=== PATIENT | female | born 1950 | race Caucasian/White ===

== ENCOUNTER 2020-04-14 09:28 | Outpatient (CLI) | payer MEDICARE, SELFPAY | END 2020-04-14 09:29 | disposition home or self-care (01) | LOC: ANHCOVIDVC 09:28 | PROVIDERS: PCP Family Medicine | DX: Z23 Encounter for immunization (principal) | CPT/HCPCS: 0001A; 91300 ==

== ENCOUNTER 2020-05-05 09:27 | Outpatient (CLI) | payer MEDICARE, SELFPAY | END 2020-05-05 09:28 | disposition home or self-care (01) | LOC: ANHCOVIDVC 09:27 | PROVIDERS: PCP Family Medicine | DX: Z23 Encounter for immunization (principal) | CPT/HCPCS: 0002A; 91300 ==

== ENCOUNTER 2020-11-13 08:27 | Outpatient (CLI) | payer MEDICARE, SELFPAY ==
--- NOTE | 2020-11-13 | ECG_ITS ---
Measurements Intervals [place] Rate: 56 P: 29 ID: [id number] QRS: 2 QRSD: 108 T: 11 QT: 399 QTc: 388 Interpretive Statements SINUS BRADYCARDIA BORDERLINE ECG Electronically Signed On 11-13-2020 10:08:13 CDT by Travis Zamora D.O.
[2020-11-13 09:02] LABS: Hematocrit 41.2 % (37.0-47.0); Hemoglobin 13.8 g/dL (12.0-15.0)
[2020-11-13 09:11] LABS: Albumin Level 4.4 g/dL (3.5-5.1); Estimated Glomerular Filt Rate 40
[2020-11-13 09:15] LABS: Urine Cotinine NEGATIVE
== END 2020-11-13 08:28 | disposition home or self-care (01) ==
LOC: ANHLAB 08:34
PROVIDERS: PCP Family Medicine; Visit Provider Orthopaedic Surgery
DX: Z01.818 Encounter for other preprocedural examination (principal); I12.9 Hypertensive chronic kidney disease with stage 1 through stage 4 chronic kidney disease, or unspecified chronic kidney disease; M16.11 Unilateral primary osteoarthritis, right hip; E66.9 Obesity, unspecified; Z51.81 Encounter for therapeutic drug level monitoring; Z79.899 Other long term (current) drug therapy
CPT/HCPCS: 80307; 82040; 82565; 85014; 85018; 93005

== ENCOUNTER 2020-12-18 08:31 | Outpatient (CLI) | payer MEDICARE, SELFPAY ==
[2020-12-18 09:36] LABS: Hematocrit 42.1 % (37.0-47.0); Hemoglobin 14.4 g/dL (12.0-15.0); Mean Corpuscular HGB Conc 34.2 g/dl (32-36); Mean Corpuscular Hemoglobin 31.2 pg (26-34); Mean Corpuscular Volume 91.1 fl (80-100); Mean Platelet Volume 10.5 fl (7.4-10.4); Platelet Count Result 340 k/mm3 (150-375); Red Blood Count 4.62 M/mm3 (4.2-5.4); Red Cell Distribution Width 13.2 % (11.5-14.5); White Blood Count 8.6 K/mm3 (4.5-10.0)
[2020-12-18 09:43] LABS: Add Urine Microscopic? YES; Appearance Urine Cloudy (Clear); Bacteria Urine Trace /hpf; Bilirubin Urine Negative (Negative); Blood Urine Negative (Negative); Color Urine Yellow (Yellow); Glucose Urine UA Negative (Negative); Ketones Urine Negative (Negative); Leukocyte Esterase Ur 3+ LEU/UL (NEGATIVE); Mucus Urine Rare /lpf; Nitrate Urine Negative (Negative); Protein Urine Negative (Negative); Specific Grav Ur 1.013 (1.001-1.035); Squamous Epithelial Cell Urine Few /hpf (Few); Urobilinogen Urine Negative mg/dL (<2.0); WBC Clumps Urine Present /HPF; WBC Urine >75 /hpf (0-3)
[2020-12-18 09:56] LABS: Albumin Level 4.5 g/dL (3.5-5.1); Anion Gap 12 mmol/L (8-16); Blood Urea Nitrogen 27 mg/dL (7-17); Calcium 9.9 mg/dL (8.4-10.2); Carbon Dioxide 23 mmol/L (22-30); Chloride 102 mmol/L (98-107); Estimated Glomerular Filt Rate 37; Glucose 125 mg/dL (65-110); Phosphorus 4.2 mg/dL (2.5-4.5); Potassium 4.3 mmol/L (3.4-5.0); Sodium 137 mmol/L (137-145)
[2020-12-18 10:08] LABS: Complement C3 132 mg/dL (88-165)
[2020-12-18 10:10] LABS: Parathyroid Intact 55.8 pg/mL (7.5-53.5)
[2020-12-18 10:34] LABS: Erythrocyte Sedimentation Rate 26 mm/hr (0-20)
[2020-12-18 10:55] LABS: Creatinine Urine 109.9 mg/dL; Total Protein Urine Random 11 mg/dL
[2020-12-20 19:45] LABS: Complement Total CH50 >60 U/mL (31-60)
[2020-12-21 04:53] LABS: Kappa\\Lambda Light Chains 2.01 (0.26-1.65); Lambda Light Chain 20.4 mg/L (5.7-26.3)
[2020-12-23 15:24] LABS: Creat 24 Hr 0.68 g/24 h (0.50-2.15); Measured Kappa Chains <1.00 mg/dL (<2.00); Measured Lambda Chains <1.00 mg/dL (<2.00); Pro/Creat Ratio 103 mg/g creat (<=114)
== END 2020-12-18 08:32 | disposition home or self-care (01) ==
LOC: ANHLAB 08:43
PROVIDERS: PCP Family Medicine; Referring Provider Family Medicine; Visit Provider Internal Medicine Nephrology
DX: N18.31 Chronic kidney disease, stage 3a (principal)
CPT/HCPCS: 36415; 80069; 81001; 82570; 83883; 83970; 84156; 85027; 85652; 86038; 86160; 86162; 86334; 86335

== ENCOUNTER 2020-12-20 19:02 | Observation (INO) | payer MEDICARE, SELFPAY ==
[2020-12-20] VITALS (13 sets, daily range): BP systolic 115–152; BP diastolic 54–71; PULSE 70–86; RESP 12–18; TEMP 36.5–36.9; O2SAT 94–100
--- NOTE | ~2020-12-20 | US_ITS ---
EXAMINATION: US renal BI DATE: 12/22/2020 09:40 INDICATION: Acute kidney injury. TECHNIQUE: Multiple ultrasound grayscale images of the kidneys were obtained. COMPARISON: None. FINDINGS: The right kidney measures 10.5 x 3.8 x 4.5 cm. The left kidney measures 10.5 x 4.2 x 5.2 cm. The kidn eys demonstrate normal parenchymal echogenicity. There is no hydronephrosis. The bladder is decompres sed and not well visualized. IMPRESSION: 1. Normal kidneys. No hydronephrosis. Reviewed, dictated and finalized at location A. SPECIALIST
--- NOTE | ~2020-12-20 | XR_ITS ---
EXAMINATION: XR hip LT 1V INDICATION: Right hip post reduction TECHNIQUE: AP view of the right hip is obtained. COMPARISON: 1922 hours FINDINGS: The previously described left hip dislocation has been reduced. Alignment is anatomic. No f racture is identified. IMPRESSION: 1. Reduced hip dislocation. Reviewed, dictated and finalized at location A. SSIAN ADMINISTRATOR IMPRESSION: 1. Reduced hip dislocation.
--- NOTE | ~2020-12-20 | XR_ITS ---
EXAMINATION: XR chest 1V INDICATION: History of hypertension TECHNIQUE: AP view of the chest is obtained. COMPARISON: None available FINDINGS: The lungs are free of acute opacities. There is no pleural effusion or pneumothorax. The ca rdiomediastinal silhouette is normal. The visualized osseous structures are unremarkable. IMPRESSION: 1. No acute cardiopulmonary abnormality. Reviewed, dictated and finalized at location A. ING MACHINE OPERATOR
--- NOTE | ~2020-12-20 | XR_ITS ---
EXAMINATION: XR hip LT 2V w AP pelvis INDICATION: Left hip pain and dislocation TECHNIQUE: Three views of the left hip are obtained on four radiographs. COMPARISON: 03/28/2019 FINDINGS: There are changes of left hip arthroplasty. There is superolateral and posterior dislocatio n of femoral component relative to the acetabular component. No fracture is identified. There is adva nced osteoarthritis of the right hip. Calcifications of the pelvis likely reflect fibroids. There is severe lumbar spondylosis. IMPRESSION: 1. Superolateral posterior dislocation of the femoral component of the left hip arthroplasty. Reviewed, dictated and finalized at location A. LE CEMENTER
--- NOTE | 2020-12-20 19:25 | PC.NURSE ---
Pt to XRAY via stretcher at this time.
--- NOTE | 2020-12-20 19:27 | ED.FALL ---
HPI - Fall General Chief Complaint: Fall Stated Complaint: fall hip injury Time Seen by Provider: 12/20/20 19:08 Source: patient Mode of arrival: EMS Limitations: no limitations History of Present Illness HPI Narrative: 70-year-old female Patient had her left hip replaced [address] Lloyd Today she bent over in her kitchen to fruit picker a spoon that she had dropped and fell and landed on her left hip and heard a pop with immediate pain and inability to bear weight and was brought to the ER by EMS She does not take any blood thinners, she did not hit anything else, she has no other complaints of pain or injury, preceding symptoms of weakness or dizziness or anything like that that precipitated the fall Related Data Home Medications Medication Instructions Recorded Confirmed atenolol 100 mg tablet 100 mg PO DAILY 01/02/19 03/28/19 lisinopril 20 1 tablet PO DAILY 01/02/19 03/28/19 mg-hydrochlorothiazide 25 mg tablet naproxen sodium 220 mg tablet 440 mg PO BID tablet 01/02/19 03/28/19 levothyroxine 75 mcg tablet 75 mcg PO DAILY tablet 10/06/20 pantoprazole 40 mg tablet,delayed 40 mg PO QAM 10/06/20 release spironolactone 25 mg tablet 25 mg PO DAILY 10/06/20 Allergies Allergy/AdvReac Type Severity Reaction Status Date / Time hydrocodone Allergy Unknown Swelling Verified 10/06/20 10:57 tramadol Allergy Unknown Swelling Verified 10/06/20 10:57 Review of Systems Review of Systems: All systems reviewed & are unremarkable except as noted in HPI and below Constitutional: Constitutional: Reports no additional constitutional complaints, Denies chills, Denies fever(s), Denies headache(s) and Denies weakness Eyes: Eyes: Reports no additional eye complaints and Denies change in vision ENT: Denies vertigo, Denies dizziness and Denies headache(s) Cardiovascular: Cardiovascular: Denies chest pain and Denies dyspnea Respiratory: Respiratory: Denies cough and Denies dyspnea Gastrointestinal: Gastrointestinal: Denies abdominal pain and Denies nausea Genitourinary: Genitourinary: Denies urinary frequency, Denies dysuria and Denies flank pain Musculoskeletal: Musculoskeletal: Denies back pain, Denies deformity, Reports arthralgias, Reports joint swelling and Denies numbness Integumentary/Breasts: Skin/Breast: Denies rash and Denies wounds Neurologic: Denies headache(s), Denies focal weakness and Denies numbness Psychiatric: Psychiatric: Reports no additional psychiatric complaints Endocrine: Endocrine: Reports no additional endocrine complaints Hematologic/Lymphatic: Hematologic/Lymphatic: Reports no additional hematologic/lymphatic complaints Allergic/Immunologic: Allergic/Immunologic: Reports no additional allergic/immunologic complaints PMFSH Past Medical History Medical History Actinic keratosis Arthritis Benign hypertensive kidney disease GERD (gastroesophageal reflux disease) History of basal cell carcinoma (BCC) of skin Hypertension Hypothyroidism Morbid obesity due to excess calories Obesity (BMI 30-39.9) Osteoarthritis of left knee Pure hypercholesterolemia Skin cancer screening Surgical History Surgical History History of cataract extraction (~2010) History of cholecystectomy (~08/1991) History of total left hip arthroplasty (~03/05/14) Status post total hip replacement, left Social History Social History Smoking status: Never smoker Alcohol intake: current Course Course Emergency Course: Spoke to hospitalists for overnight IV so that PT and OT can see her, also discussed with Dr. Lloyd Vital Signs Vital signs: Vital Signs Temperature 36.9 C 12/20/20 19:02 Pulse Rate 80 12/20/20 19:02 Respiratory Rate 18 12/20/20 19:02 Blood Pressure 132/64 12/20/20 19:02 Pulse Oximetry 100 12/20/20 19:02
[2020-12-20] MEDS: fentaNYL CITRATE INJ (*CRX) 100 MCG/2 ML VIAL (20:54)
--- NOTE | 2020-12-20 20:54 | PC.NURSE ---
EDP Dr Goode and Dr Hess at bedside for sedation.
[2020-12-20] MEDS: SODIUM CHLORIDE 0.9% IV 1,000 ML 999 ML (20:55)
--- NOTE | 2020-12-20 20:55 | PC.NURSE ---
EDP Dr Goode at bedside gave 55 Propofol IVP at this time.
--- NOTE | 2020-12-20 20:57 | PC.NURSE ---
total of 80 Propof[address] given IVP by Dr Goode at bedside
--- NOTE | 2020-12-20 21:05 | PC.NURSE ---
Dr Hess gave 50 Propofol IVP at this time for second attempt at reduction. Dr Goode at bedside for attempt as well. Pt remains on tele monitor, VSS.
--- NOTE | 2020-12-20 22:06 | PM.IMHP ---
H&P: HPI History of Present Illness Date/Time: 12/20/20 22:06 Chief Complaint: Fall Narrative: This is a 70-year-old female with past medical history significant for hypertension, hypothyroidism, GERD, degenerative joint disease, status post left hip replacement 7 years ago today the patient leaned over to filler picker a spoon from the floor when immediately she fell over and onto her left side had a popping noise and was and unbearable pain on her left hip and unable to get up and bear weight on it EMS was called and patient was brought to emergency room. Emergency room patient was found to have a left hip dislocation which was placed back in place. Patient denies any dizziness lightheadedness palpitations syncope near syncope and loss of consciousness nausea vomiting diarrhea or abdominal pain she has been in to her usual state of health until this event. However a day before or so it was noted that the patient had labs drawn and urinalysis does show numerous wbc's present unclear if patient was on treatment at home as patient did not make mention of it and upon reviewing external medications no antibiotics are present. Patient has been admitted for further evaluation management and treatment. Review of Systems Review of Systems: Fall left hip pain unable to bear weight on it Constitutional: Constitutional: Denies chills, Denies fatigue, Denies fever(s), Denies malaise, Denies night sweats and Denies weakness Eyes: Eyes: Denies change in vision ENT: Denies dysphagia, Denies vertigo, Denies dizziness, Denies nasal congestion, Denies nasal discharge, Denies nasal obstruction and Denies odynophagia Cardiovascular: Cardiovascular: Denies chest pain at rest, Denies chest pain with activity, Denies irregular heart rhythm, Denies lightheadedness, Denies radiating jaw, neck or arm pain, Denies palpitations, Denies dyspnea, Denies dyspnea on exertion and Denies orthopnea Respiratory: Respiratory: Denies cough and Denies dyspnea Gastrointestinal: Gastrointestinal: Denies abdominal pain, Denies dyspepsia, Denies heartburn, Denies diarrhea, Denies nausea and Denies vomiting Genitourinary: Genitourinary: Denies dysuria Musculoskeletal: Musculoskeletal: Reports arthralgias and Reports limited range of motion Integumentary/Breasts: Skin/Breast: Denies rash Neurologic: Denies vertigo, Denies dizziness, Denies syncope, Denies focal weakness and Denies Sensory deficit (Neuro) Psychiatric: Psychiatric: Reports no additional psychiatric complaints and Reports as per HPI Endocrine: Endocrine: Reports no additional endocrine complaints and Reports as per HPI Hematologic/Lymphatic: Hematologic/Lymphatic: Reports no additional hematologic/lymphatic complaints and Reports as per HPI Allergic/Immunologic: Allergic/Immunologic: Reports no additional allergic/immunologic complaints and Reports as per HPI [facility] Past Medical History Medical History (Updated 12/21/20 @ 03:28 by Adelaida Brice MD) Actinic keratosis Arthritis Benign hypertensive kidney disease GERD (gastroesophageal reflux disease) History of basal cell carcinoma (BCC) of skin Hypertension Hypothyroidism Morbid obesity due to excess calories Obesity (BMI 30-39.9) Osteoarthritis of left knee Pure hypercholesterolemia Skin cancer screening Surgical History Surgical History History of cataract extraction (~2010) History of cholecystectomy (~08/1991) History of total left hip arthroplasty (~03/05/14) Status post total hip replacement, left Family History Family History Grandparent Congestive heart failure Mother Hypertension Cerebrovascular accident Social History Social History Smoking status: Never smoker Alcohol intake: never Substance use: never Substance use type: does not use Spiritual care concerns: No
[2020-12-20 22:58] LABS: Basophils Percent Auto 0.2 % (0.2-1.2); Eosinophils Percent Auto 0.2 % (0-4.4); Hematocrit 39.4 % (37.0-47.0); Hemoglobin 13.4 g/dL (12.0-15.0); Immature Granulocyte Absolute 0.04 K/mm3 (0.00-0.031); Immature Granulocyte Percent A 0.3 % (0-0.5); Lymphocytes Absolute Auto 1.33 K/mm3 (0.9-3.2); Lymphocytes Percent Auto 9.4 % (18.3-44.2); Mean Corpuscular Hemoglobin 31.7 pg (26-34); Mean Corpuscular Volume 93.1 fl (80-100); Mean Platelet Volume 10.2 fl (7.4-10.4); Monocytes Percent Auto 6.9 % (2.6-8.5); Neutrophils Absolute Auto 11.8 K/mm3 (1.3-6.7); Platelet Count Result 287 k/mm3 (150-375); Red Blood Count 4.23 M/mm3 (4.2-5.4); Red Cell Distribution Width 12.9 % (11.5-14.5); White Blood Count 14.2 K/mm3 (4.5-10.0)
[2020-12-20 23:06] LABS: Anion Gap 11 mmol/L (8-16); Blood Urea Nitrogen 31 mg/dL (7-17); Calcium 9.3 mg/dL (8.4-10.2); Carbon Dioxide 20 mmol/L (22-30); Chloride 104 mmol/L (98-107); Estimated CRCL calculation 41 ml/min; Estimated Glomerular Filt Rate 37; Glucose 131 mg/dL (65-110); Potassium 4.1 mmol/L (3.4-5.0); Sodium 135 mmol/L (137-145)
[2020-12-21] VITALS: BP 144/64; PULSE 82; RESP 16; TEMP 36.4; O2SAT 100
[2020-12-21] MEDS: ACETAMINOPHEN 325 MG TABLET 650 MG PO ×3 (00:19→20:47)
[2020-12-21] MEDS: LACTATED RINGERS 1,000 ML 60 ML IV CONT (00:19)
[2020-12-21 05:41] VITALS: BP 139/50; PULSE 72; RESP 16; TEMP 36.7; O2SAT 98
[2020-12-21] MEDS: LEVOTHYROXINE SODIUM 75 MCG TABLET PO (06:11)
[2020-12-21 08:34] VITALS: PULSE 81
[2020-12-21] MEDS: PANTOPRAZOLE 40 MG TABLET PO (08:34)
[2020-12-21] MEDS: lisinopriL 20 MG TABLET PO (08:34)
[2020-12-21] MEDS: atenoloL 50 MG TABLET 100 MG PO (08:34)
[2020-12-21] MEDS: hydroCHLOROthiazide 25 MG TABLET PO (08:34)
[2020-12-21] MEDS: SPIRONOLACTONE 25 MG TABLET PO (08:34)
[2020-12-21 09:11] LABS: Add Urine Microscopic? YES; Appearance Urine Cloudy (Clear); Bilirubin Urine Negative (Negative); Blood Urine 2+ (Negative); Color Urine Yellow (Yellow); Glucose Urine UA Negative (Negative); Ketones Urine Negative (Negative); Leukocyte Esterase Ur 3+ LEU/UL (Negative); Mucus Urine Rare /lpf; Nitrate Urine Negative (Negative); Protein Urine Negative (Negative); Squamous Epithelial Cell Urine Rare /hpf (Few); Urobilinogen Urine Negative mg/dL (<2.0); WBC Clumps Urine Present /HPF; WBC Urine >75 /hpf
--- NOTE | 2020-12-21 10:40 | PM.IMPN ---
Progress Note: A&P Assessment and Plan (1) Dislocation of left hip: Code(s): S73.005A - Unspecified dislocation of left hip, initial encounter Status: Acute Assessment and Plan: Presented after fall stating her hip gave out. Hip x-ray on presentation showed superolateral posterior dislocation of the femoral component of the left hip arthroplasty. This was reduced in the ED and repeat hip x-ray showed anatomic alignment. She does endorse soreness. Awaiting orthopedic surgery evaluation. PT/OT. Supportive care. Fall precautions. Analgesics available as needed. (2) Urinary tract infection: Code(s): N39.0 - Urinary tract infection, site not specified Status: Acute Assessment and Plan: Suspected. Outpatient UA performed on 12/18/2020 grossly abnormal and she was started on IV Rocephin on admission. White blood cell count [id number]. Repeat UA with reflex culture performed today again showed grossly abnormal UA with 3+ leuk esterase and >75 WBCs with clumps. Continue IV Rocephin while awaiting urine culture (3) Hypertension: Code(s): I10 - Essential (primary) hypertension Status: Inactive Assessment and Plan: Blood pressure reviewed and has been generally well controlled. Last BP 139/50. Continue lisinopril-hydrochlorothiazide, atenolol, spironolactone. (4) Chronic kidney disease: Code(s): N18.9 - Chronic kidney disease, unspecified Status: Acute Assessment and Plan: Renal function reviewed and remains consistent with baseline. She is in the process of outpatient evaluation with baby doctor, Dr. Cabral and had outpatient laboratory workup earlier this week. Continue outpatient follow-up. Monitor renal function closely. (5) Arthritis: Code(s): M19.90 - Unspecified osteoarthritis, unspecified site Status: Acute Assessment and Plan: In the process of getting scheduled for right hip arthroplasty. Supportive care and analgesics as needed. (6) GERD (gastroesophageal reflux disease): Code(s): K21.9 - Gastro-esophageal reflux disease without esophagitis Status: Inactive Assessment and Plan: No acute issues. Protonix 40 mg p.o. daily. Subjective Date/time seen: 12/21/20 10:40 Interval history: Date of service: 12/21/2020 Jacklyn Nunes is a 70-year-old female with a history of CKD, hypertension, GERD, osteoarthritis of bilateral knees, osteoarthritis of bilateral hips s/p total left hip arthroplasty in 2015 who is seen in follow-up for left hip dislocation. The patient stated that she was bending down to fern picker something when her hip gave out and she fell down, catching herself with her arms on the kitchen counter. She was then able to slide herself down and felt to her buttocks. She denied precipitating symptoms including dizziness or lightheadedness. She was able to crawl to her phone on the kitchen table nearby and call for help. Aside from the hip, she denies any additional injuries. Denies any scripts or bruises. She did not hit her head. She states that her hip was very painful but was able to be reduced in the ED and she had symptomatic improvement following that. She now describes a soreness in the left hip that she rates as 2/10. She also describes a right hip pain that is constant, noting that she is scheduled to have a right total hip arthroplasty soon. She also complains of bilateral knee pain related to her osteoarthritis. She did not injure her knees and her fall. She denies headaches. No nausea, vomiting, fever, or chills. She denies any recent dysuria, hematuria, urgency, or frequency. Denies suprapubic pain. She reports regular bowel movements. Notes that her appetite has been good. Denies chest pain or palpitations. She has no additional concerns at this time and is in good spirits. Review of Systems Review of Systems: All systems reviewed & are unremarkable except
--- NOTE | 2020-12-21 11:40 | PM.CNOR ---
Assessment and Plan Assessment and plan (1) Dislocation of left hip: Qualifiers: Encounter type: initial encounter Qualified Code(s): S73.005A - Unspecified dislocation of left hip, initial encounter Code(s): S73.005A - Unspecified dislocation of left hip, initial encounter Status: Acute (2) Status post total hip replacement, left: Code(s): Z96.642 - Presence of left artificial hip joint Status: Acute (3) Arthritis of right hip: Code(s): M16.11 - Unilateral primary osteoarthritis, right hip Status: Acute Assessment and Plan: Acute first-time left total hip dislocation. Patient is comfortable. Her radiographs show satisfactory component alignment. No osteolysis or loosening. Reviewed dislocation precautions. May be discharged home. The advanced arthritis of the right hip will need hip arthroplasty. Medical clearances and preparation are in progress. History of Present Illness HPI Consult date: 12/21/20 Chief complaint: Hip Dislocation Narrative: Complains of mild left hip discomfort. Was picking up a spoon from the floor. She felt the hip dislocate. Underwent a closed reduction in the emergency room. Tolerated this well. History of left total hip arthroplasty 2015 tolerated well. No complications. Complains primarily of severe right hip arthritis pain. She has known advanced arthritis on the right. Planning on hip replacement in the future there. Review of Systems Review of Systems: All systems reviewed & are unremarkable except as noted in HPI and below PMFSH Past Medical History Medical History Actinic keratosis Arthritis Benign hypertensive kidney disease GERD (gastroesophageal reflux disease) History of basal cell carcinoma (BCC) of skin Hypertension Hypothyroidism Morbid obesity due to excess calories Obesity (BMI 30-39.9) Osteoarthritis of left knee Pure hypercholesterolemia Skin cancer screening Surgical History Surgical History History of cataract extraction (~2010) History of cholecystectomy (~08/1991) History of total left hip arthroplasty (~03/05/14) Status post total hip replacement, left Family History Family History Grandparent Congestive heart failure Mother Hypertension Cerebrovascular accident Social History Social History Smoking status: Never smoker Alcohol intake: never Substance use: never Substance use type: does not use Spiritual care concerns: No Meds Home Medications and Allergies Home Medications Medication Instructions Recorded Confirmed Type atenolol 100 mg tablet 100 mg PO DAILY 01/02/19 12/21/20 History lisinopril 20 1 tablet PO DAILY 01/02/19 12/21/20 History mg-hydrochlorothiazide 25 mg tablet levothyroxine 75 mcg tablet 75 mcg PO DAILY tablet 10/06/20 12/21/20 History pantoprazole 40 mg tablet,delayed 40 mg PO QAM 10/06/20 12/21/20 History release spironolactone 25 mg tablet 25 mg PO DAILY 10/06/20 12/21/20 History Allergies Allergy/AdvReac Type Severity Reaction Status Date / Time hydrocodone Allergy Unknown Swelling Verified 12/21/20 00:09 tramadol Allergy Unknown Swelling Verified 12/21/20 00:09 Vital Signs Vital Signs - 24 hr 12/20/20 19:02 12/20/20 20:46 12/20/20 20:50 Temperature 36.9 C 36.6 C Pulse Rate 80 81 Pulse Rate [Brachial(s)] 82 Respiratory Rate 18 12 12 Blood Pressure 132/64 149/63 H Blood Pressure [Left Arm] Pulse Oximetry 100 100 100 12/20/20 20:55 12/20/20 21:00 12/20/20 21:05 Temperature 36.6 C 36.6 C 36.6 C Pulse Rate Pulse Rate [Brachial(s)] 76 82 86 Respiratory Rate 16 17 17 Blood Pressure Blood Pressure [Left Arm] 146/65 H 152/59 H 151/62 H Pulse Oximetry 99 94 99 12/20/20 21:10 12/20/20
[2020-12-21 11:56] LABS: Basophils Percent Auto 0.2 % (0.2-1.2); Eosinophils Percent Auto 0.2 % (0-4.4); Hematocrit 37.6 % (37.0-47.0); Hemoglobin 12.9 g/dL (12.0-15.0); Immature Granulocyte Absolute 0.02 K/mm3 (0.00-0.031); Immature Granulocyte Percent A 0.2 % (0-0.5); Lymphocytes Absolute Auto 1.25 K/mm3 (0.9-3.2); Lymphocytes Percent Auto 14.3 % (18.3-44.2); Mean Corpuscular HGB Conc 34.3 g/dl (32-36); Mean Corpuscular Hemoglobin 32.2 pg (26-34); Mean Corpuscular Volume 93.8 fl (80-100); Monocytes Percent Auto 11.5 % (2.6-8.5); Neutrophils Absolute Auto 6.5 K/mm3 (1.3-6.7); Neutrophils Percent Auto 73.6 % (45.5-73.1); Platelet Count Result 270 k/mm3 (150-375); Red Blood Count 4.01 M/mm3 (4.2-5.4); Red Cell Distribution Width 12.9 % (11.5-14.5); White Blood Count 8.8 K/mm3 (4.5-10.0)
[2020-12-21 12:06] LABS: Anion Gap 11 mmol/L (8-16); Blood Urea Nitrogen 22 mg/dL (7-17); Calcium 9.6 mg/dL (8.4-10.2); Carbon Dioxide 24 mmol/L (22-30); Chloride 103 mmol/L (98-107); Estimated CRCL calculation 52 ml/min; Estimated Glomerular Filt Rate 49; Glucose 120 mg/dL (65-110); Potassium 4.5 mmol/L (3.4-5.0); Sodium 138 mmol/L (137-145)
[2020-12-21 14:25] VITALS: BP 150/70; PULSE 71; RESP 16; TEMP 37.1; O2SAT 100
--- NOTE | 2020-12-21 16:42 | PCOTNOTE ---
Pt attempted to be seen for OT evaluation at 9:00am yet awaiting ortho consultation. Will follow-up to complete evaluation pending consultation.
[2020-12-21 22:00] VITALS: BP 105/46; PULSE 72; RESP 20; TEMP 36.2; O2SAT 98
[2020-12-22 06:00] VITALS: BP 132/67; PULSE 62; RESP 21; TEMP 36.1; O2SAT 100
[2020-12-22 06:00] LABS: Hemoglobin 12.6 g/dL (12.0-15.0); Mean Corpuscular HGB Conc 34.1 g/dl (32-36); Mean Corpuscular Hemoglobin 31.5 pg (26-34); Mean Corpuscular Volume 92.5 fl (80-100); Mean Platelet Volume 10.6 fl (7.4-10.4); Platelet Count Result 274 k/mm3 (150-375); Red Cell Distribution Width 12.6 % (11.5-14.5); White Blood Count 7.9 K/mm3 (4.5-10.0)
[2020-12-22 06:08] LABS: Anion Gap 9 mmol/L (8-16); Blood Urea Nitrogen 21 mg/dL (7-17); Calcium 9.4 mg/dL (8.4-10.2); Carbon Dioxide 27 mmol/L (22-30); Chloride 99 mmol/L (98-107); Estimated CRCL calculation 48 ml/min; Estimated Glomerular Filt Rate 44; Glucose 106 mg/dL (65-110); Potassium 3.9 mmol/L (3.4-5.0); Sodium 135 mmol/L (137-145)
[2020-12-22] MEDS: LEVOTHYROXINE SODIUM 75 MCG TABLET PO (06:10)
[2020-12-22 08:17] VITALS: PULSE 62
[2020-12-22] MEDS: hydroCHLOROthiazide 25 MG TABLET PO (08:17)
[2020-12-22] MEDS: lisinopriL 20 MG TABLET PO (08:17)
[2020-12-22] MEDS: SPIRONOLACTONE 25 MG TABLET PO (08:17)
[2020-12-22] MEDS: ACETAMINOPHEN 325 MG TABLET 650 MG PO (08:17)
[2020-12-22] MEDS: atenoloL 50 MG TABLET 100 MG PO (08:17)
[2020-12-22] MEDS: PANTOPRAZOLE 40 MG TABLET PO (08:17)
[2020-12-22 14:12] VITALS: BP 120/64; PULSE 62; RESP 16; TEMP 36.5; O2SAT 100
--- NOTE | 2020-12-22 14:52 | PM.DS ---
DS: Admitting Diagnosis Discharge Date 12/22/2020 Admitting Diagnosis Hip dislocation DS: Discharge Diagnosis Discharge Diagnosis (1) Dislocation of left hip: Qualifiers: Encounter type: initial encounter Qualified Code(s): S73.005A - Unspecified dislocation of left hip, initial encounter Code(s): S73.005A - Unspecified dislocation of left hip, initial encounter Status: Acute Assessment and Plan: Presented after fall stating her hip gave out. Hip x-ray on presentation showed superolateral posterior dislocation of the femoral component of the left hip arthroplasty. This was reduced in the ED and repeat hip x-ray showed anatomic alignment. She was seen in consultation by orthopedic surgery who felt comfortable with discharge home. She participated in PT/OT. (2) Abnormal urinalysis: Code(s): R82.90 - Unspecified abnormal findings in urine Status: Acute Assessment and Plan: Outpatient UA performed on 12/18/2020 was abnormal. She was asymptomatic. Repeat UA sent for culture which was negative. No further antibiotics. (3) Hypertension: Code(s): I10 - Essential (primary) hypertension Status: Inactive Assessment and Plan: Blood pressure reviewed and was generally well controlled. Continue lisinopril-hydrochlorothiazide, atenolol, spironolactone. (4) Chronic kidney disease: Code(s): N18.9 - Chronic kidney disease, unspecified Status: Acute Assessment and Plan: Renal function reviewed and remained consistent with baseline. She is in the process of outpatient evaluation with room service attendant, Dr. Cabral and had outpatient laboratory workup earlier this week. Renal US showed normal kidneys without hydronephrosis. Continue outpatient follow-up. (5) Arthritis: Code(s): M19.90 - Unspecified osteoarthritis, unspecified site Status: Acute Assessment and Plan: In the process of getting scheduled for right hip arthroplasty. Supportive care and analgesics as needed. (6) GERD (gastroesophageal reflux disease): Code(s): K21.9 - Gastro-esophageal reflux disease without esophagitis Status: Inactive Assessment and Plan: No acute issues. Protonix 40 mg p.o. daily. DS: Summary Hospital Course Hospital Course: Date of admission: 12/20/2020 Date of discharge: 12/22/2020 Jacklyn Nunes is a 70-year-old female with a history of CKD, hypertension, GERD, osteoarthritis of bilateral knees, osteoarthritis of bilateral hips s/p total left hip arthroplasty in 2014 who presented to the emergency department on 12/20/2020 after her left hip gave out and she landed on the left hip. On presentation to the emergency department, her vital signs were stable, she was afebrile, hip/pelvis x-ray showed superolateral posterior dislocation of the femoral component, CXR with no acute findings. The hip was reduced and subsequent x-ray showed and, alignment. She was admitted to the hospitalist service for further evaluation and management and was seen in consultation by Orthopedic surgery. Please see above for further details. Her pain resolved and she was able to get around without difficulty. She will need to follow-up with orthopedic surgery. Given her overall improvement, she was determined to no longer require inpatient care and was felt to be stable for discharge. We discussed worrisome signs and symptoms for which to return and she was educated on her medications. She was discharged in hemodynamically stable condition on 12/22/2020. Status at Discharge Functional status at discharge: independent ambulation Time Spent with Patient Time attestation: Total time spent providing and/or coordinating discharge services: 45 minutes Time spent: Greater than 30 minutes Exam Narrative: Ms. Nunes is a well-nourished, well-appearing 70-year-old female who is lying semi recumbent in bed. She appears comfortable
== END 2020-12-22 16:24 | disposition home or self-care (01) ==
LOC: ANHED 19:47 → ANH2MED 22:42
PROVIDERS: Physician Assistant; Admitting Provider Internal Medicine; Emergency Provider Emergency Medicine; PCP Family Medicine; Visit Provider Internal Medicine
DX: T84.021A Dislocation of internal left hip prosthesis, initial encounter (principal); W18.39XA Other fall on same level, initial encounter; R82.90 Unspecified abnormal findings in urine; I12.9 Hypertensive chronic kidney disease with stage 1 through stage 4 chronic kidney disease, or unspecified chronic kidney disease; N18.9 Chronic kidney disease, unspecified; E03.9 Hypothyroidism, unspecified; K21.9 Gastro-esophageal reflux disease without esophagitis; E78.00 Pure hypercholesterolemia, unspecified; E66.9 Obesity, unspecified; Z68.35 Body mass index [BMI] 35.0-35.9, adult; M19.90 Unspecified osteoarthritis, unspecified site
CPT/HCPCS: 27265; 27266; 36415; 71045; 73501; 73502; 76775; 80048; 81001; 85025; 85027; 87086; 96365; 96375; 97116; 97161; 97165; 97530; 99285; A9270; G0378; J0696; J2704; J3010; J7030; J7120

== ENCOUNTER 2021-03-09 07:38 | Outpatient (CLI) | payer MEDICARE, SELFPAY ==
[2021-03-09 09:19] LABS: Albumin Level 4.6 g/dL (3.5-5.1)
[2021-03-09 09:23] LABS: Anion Gap 12 mmol/L (8-16); Blood Urea Nitrogen 27 mg/dL (7-17); Carbon Dioxide 23 mmol/L (22-30); Chloride 101 mmol/L (98-107); Estimated Glomerular Filt Rate 29; Glucose 114 mg/dL (65-110); Potassium 4.2 mmol/L (3.4-5.0); Sodium 136 mmol/L (137-145)
[2021-03-09 09:25] LABS: Urine Cotinine NEGATIVE
[2021-03-09 09:36] LABS: Basophils Absolute Auto 0.1 K/mm3 (0.0-0.1); Basophils Percent Auto 0.6 % (0.2-1.2); Eosinophils Absolute Auto 0.2 K/mm3 (0-0.3); Eosinophils Percent Auto 1.8 % (0-4.4); Hematocrit 42.5 % (37.0-47.0); Hemoglobin 14.3 g/dL (12.0-15.0); Immature Granulocyte Absolute 0.04 K/mm3 (0.00-0.031); Immature Granulocyte Percent A 0.4 % (0-0.5); Lymphocytes Absolute Auto 1.57 K/mm3 (0.9-3.2); Lymphocytes Percent Auto 17.7 % (18.3-44.2); Mean Corpuscular HGB Conc 33.6 g/dl (32-36); Mean Corpuscular Hemoglobin 31.7 pg (26-34); Mean Corpuscular Volume 94.2 fl (80-100); Mean Platelet Volume 10.7 fl (7.4-10.4); Monocytes Absolute Auto 0.7 K/mm3 (0.1-0.6); Monocytes Percent Auto 7.3 % (2.6-8.5); Neutrophils Absolute Auto 6.4 K/mm3 (1.3-6.7); Neutrophils Percent Auto 72.2 % (45.5-73.1); Platelet Count Result 300 k/mm3 (150-375); Red Blood Count 4.51 M/mm3 (4.2-5.4); Red Cell Distribution Width 13.9 % (11.5-14.5); White Blood Count 8.9 K/mm3 (4.5-10.0)
[2021-03-09 09:53] LABS: Hemoglobin A1C 5.3 % (<5.7)
== END 2021-03-09 07:39 | disposition home or self-care (01) ==
LOC: ANHSURGERY 07:46
PROVIDERS: Anesthesiology; PCP Family Medicine; Visit Provider Orthopaedic Surgery
DX: Z01.818 Encounter for other preprocedural examination (principal); M16.11 Unilateral primary osteoarthritis, right hip; Z79.899 Other long term (current) drug therapy
CPT/HCPCS: 36415; 80048; 80307; 82040; 83036; 85025; 87081

== ENCOUNTER 2021-03-16 08:19 | Outpatient (CLI) | payer MEDICARE, SELFPAY ==
[2021-03-16 09:13] LABS: Estimated Glomerular Filt Rate 37
== END 2021-03-16 08:20 | disposition home or self-care (01) ==
PROVIDERS: PCP Family Medicine; Visit Provider Orthopaedic Surgery
DX: Z01.818 Encounter for other preprocedural examination (principal); M16.11 Unilateral primary osteoarthritis, right hip; N18.9 Chronic kidney disease, unspecified
CPT/HCPCS: 36415; 82565

== ENCOUNTER 2021-03-31 00:18 | Day surgery (SDC) | payer MEDICARE, SELFPAY ==
[2021-03-09 07:52] VITALS: BMI 30.6
--- NOTE | 2021-03-09 07:53 | PC.NURSE ---
Report to the Outpatient Waiting Room, entrance under the green pavilion located off [facility], at time _0600_ on date _03/31/21_. OR Time: _0730__. - You and your visitor will be asked a series of questions to screen for COVID 19 for your protection. - A mask is required within the hospital. - NO visitors are allowed at this time. Preoperative COVID Testing Requirements: No COVID Test needed if: (proof is required; if not received patient will have Rapid Test prior to entry) - Patient has received COVID Vaccine at least 14 days prior to procedure date or - Patient has positive COVID test result within last 90 days of surgery date. COVID Test needed if above criteria is not met If not COVID vaccinated a COVID test must be conducted within 72 hours of surgery and patient is asked to isolate self from time of testing until procedure. You will go to the [facility] for your COVID testing. The [facility] site is located at the corner of [address] [facility]. You will only be called if COVID results are positive and your surgeon may reschedule your elective surgery date. Patients may have clear liquids (water, carbonated beverages, clear teas, apple juice) until 3 hours prior to surgery with a maximum of 20 ounces. (0430 AM) - No food from midnight until time of surgery - Infants may have breast milk until 4 hours before surgery, infant formula 6 hours prior to surgery. - Children will be allowed to drink immediately following surgery. If applicable, please bring a bottle or sippy cup to assist with drinking. Juice, water, soda, and popsicles are readily available. For infants on formula, please bring formula the day of surgery. Pacifiers are allowed. Take the following medications with a SIP of water the morning of surgery: _ATENOLOL, LEVOTHYROXINE, TYLENOL IF NEED FOR PAIN__ Medications to discontinue per physician __N/A__ Date to take last dose Please no make-up, nail slovenian, hairspray, perfume, deodorant, or body powder the day of surgery. No jewelry (including any body piercings) or valuables the day of surgery, leave them at home. Please take a shower or bath the night before, or the morning of, surgery with an antibacterial soap. Wear comfortable, loose fitting clothing. Children are encouraged to wear pajamas. - Jewelry must be removed prior to entering the operating room. Rings and piercings that are not removed may be cut off. - The hospital will not accept responsibility for valuables. - Please leave all valuables, including medications, at home the day of surgery. If you are going home after surgery, a licensed highway truck driver must drive you home. - NO public transportation without another adult. - We recommend that an adult stay with you for 24 hours following discharge. - We also recommend that you do not drive, make important decision, drink alcoholic beverages, or take any drugs that were not prescribed by your health care provider for at least 24 hours after your discharge time. For Pediatric surgeries, we recommend two adults accompany the child home (only one inside the building at this time). Follow any additional instructions given to you from your surgeon. Telephone instructions given to _PT & SON (BAM)___and asked if any additional questions and then verbalized understanding. Patient advised to call surgeon office or pre surgery nurse liaison [phone] if any additional questions.
[2021-03-09 08:14] VITALS: BP 148/62; PULSE 60; RESP 18; TEMP 36.3; O2SAT 97
[2021-03-31] VITALS (10 sets, daily range): BP systolic 108–137; BP diastolic 44–61; PULSE 48–62; RESP 10–20; TEMP 36.2–37.1; O2SAT 97–100; BMI 29.7
--- NOTE | ~2021-03-31 | XR_ITS ---
EXAMINATION: XR hip RT min 2V DATE: 03/31/2021 10:09 INDICATION: Postoperative evaluation following right total hip arthroplasty TECHNIQUE: Anteroposterior and lateral views of the right hip were obtained. COMPARISON: 10/06/2020 FINDINGS: Interval placement of a right total hip arthroplasty which appears well seated in near anatomic align ment. Small amount of expected subcutaneous gas in the postoperative bed. No fractures identified. N o significant change in the visualized portion of a partially calcified left pelvic mass most likely degenerated uterine fibroid. IMPRESSION: 1. Right total hip arthroplasty, negative for postoperative purposes. 2. Calcified uterine fibroid. Reviewed, dictated and finalized at location A. [employer] HE[employer] TECHNICIAN
[2021-03-31] MEDS: LACTATED RINGERS 1,000 ML 30 ML IV CONT ×2 (06:53→09:56)
[2021-03-31] MEDS: ACETAMINOPHEN 500 MG TABLET 1000 MG PO (06:56)
[2021-03-31] MEDS: TRANEXAMIC ACID 1,000MG/ISO100 1,000 MG/100 ML BAG 200 MG IVPB (06:57)
--- NOTE | 2021-03-31 07:02 | WPDANESEPPF ---
Anes - Initial Pre Proc Eval Procedure: Operation Date: 03/31/21 07:30 Proposed Procedures p Right Total Hip Arthroplasty - Jay Lloyd MD Date/Time: 03/31/21 07:02 Surgeon: Jay Lloyd MD Pre Op Diagnosis: primary oa right hip Patient Data Age: 71 Gender: F Height: 1.7 m Weight: 86.1 kg Last Vital Signs Temp 36.7 C 03/31/21 06:31 Pulse 62 03/31/21 06:31 Resp 18 03/31/21 06:31 BP 126/50 L 03/31/21 06:31 Pulse Ox 100 03/31/21 06:31 Allergies Allergy/AdvReac Type Severity Reaction Status Date / Time hydrocodone Allergy Unknown Swelling Verified 03/31/21 06:33 tramadol Allergy Unknown Swelling Verified 03/31/21 06:33 Home Medications Medication Instructions Recorded Confirmed Type atenolol 100 mg tablet 100 mg PO QAM 01/02/19 03/31/21 History lisinopril 20 1 tablet PO QAM 01/02/19 03/31/21 History mg-hydrochlorothiazide 25 mg tablet pantoprazole 40 mg tablet,delayed 40 mg PO QAM 10/06/20 03/31/21 History release spironolactone 25 mg tablet 25 mg PO QAM 10/06/20 03/31/21 History acetaminophen [Tylenol Ex Str 1,000 mg PO BID PRN 03/09/21 03/31/21 History Arthritis Pain] levothyroxine 88 mcg QAM 03/09/21 03/31/21 History Patient hx anesthesia problems: none Family hx anesthesia problems: none Results Review: All pre-operative results and documents have been reviewed as part of the pre-operative evaluation. [facility] Past Medical History Medical History Actinic keratosis Arthritis Benign hypertensive kidney disease GERD (gastroesophageal reflux disease) History of basal cell carcinoma (BCC) of skin Hypertension Hypothyroidism Morbid obesity due to excess calories Obesity (BMI 30-39.9) Osteoarthritis of left knee Pure hypercholesterolemia Skin cancer screening Surgical History Surgical History History of cataract extraction (~2010) History of cholecystectomy (~08/1991) History of total left hip arthroplasty (~03/05/14) Status post total hip replacement, left Family History Family History Grandparent Congestive heart failure Mother Hypertension Cerebrovascular accident Social History Social History Tobacco type: cigarettes Second hand tobacco smoke exposure: No Additional smoking assessment comments: STATES SMOKED MANY YEARS AGO FOR SHORT PD OF TIME-DENIES ALL TOBACCO USE Alcohol intake: former Alcohol use details: STATES SOCIAL DRINKER - STOPPED MANY YEARS AGO Substance use: never Substance use type: does not use Living arrangements: alone Spiritual care concerns: No Anes - Eval Final PreProcedure Day of Procedure 03/31/21 07:02 Patient weight: overweight Heart: regular rate and rhythm Lungs: clear to auscultation Airway: Mallampati scale class II Neurological: alert and oriented Last oral intake: >/= 8 hours Emergent: no Anesthetic plan: proceed Anesthesia type and monitoring: general ETT and standard monitoring Results Review: All pre-operative results and documents have been reviewed as part of the pre-operative evaluation. Informed Consent: The patient's anesthetic plan and its attendant risks and benefits were discussed with the patient/family/POA. Questions were solicited and answers provided to the satisfaction of the patient/family/POA.
--- NOTE | 2021-03-31 07:13 | SUR.PREOP ---
0630; PT ARRIVES IN W/C. SON CARRYING WALKER. PT MOANING LOUDLY. C/O / PAIN TO RT HIP. PT ASSISTED IN DRESSING AND INTO STRETCHER. PT ALSO ASSISTED TO LAY ON LT SIDE FOR COMFORT. PT MOANING AND GRIMACING. PT STATES SHE IS IN PAIN CONSTANTLY WITH THIS RT HIP. 0700; DR MORRIS INTO TO SEE PT. PT STILL MOANING AND C/O PAIN
--- NOTE | 2021-03-31 07:16 | SUR.PREOP ---
NOTIFIED DR IQBAL OF INTENSE PAIN TO RT HIP AND TINGLING DOWN RT LEG TO TOES. PT IS ABLE TO FEEL TOUCH.
--- NOTE | 2021-03-31 07:17 | WPDHPUPDATE1 ---
History and Physical Update Update Date/Time: 03/31/21 07:17 History and Physical has been reviewed, including an updated exam of the patient. There are NO changes in the patient's condition. Risks, benefits, and alternatives have been discussed and questions answered. Patient agrees to proceed with procedure.
[2021-03-31] MEDS: ceFAZolin 2 GM/D5W 50 ML 2 GM/50 ML BAG IVPB ×3 (07:30→23:24)
--- NOTE | 2021-03-31 09:48 | W.PM.PROC2 ---
Procedure Note - Detailed Date of Procedure 03/31/21 Pre-op Diagnosis primary oa right hip Post-op Diagnosis same Procedure Performed Right Total Hip Arthroplasty Surgeon Jay Lloyd MD [employer]se[employer] Technician Yoly Mohamud PA-C Anesthesia general Description of Procedure The patient was given preoperative antibiotics. A general anesthetic was administered. The patient was carefully placed in the lateral decubitus position on the PEG board. The shoulders and hips were carefully positioned for component and leg length positioning reference. The hip was prepped and draped in the usual sterile fashion. A longitudinal incision was created over the posterior aspect of the greater trochanter. Careful dissection was brought down through the deep fascia with electrocautery. A minimally invasive optimized posterior approach to the hip was performed. The short external rotators and capsule were taken down in an L-shaped capsulotomy. The tissue was tagged for later repair using number 2 high strength suture. The femoral neck was measured and taken in situ. The femoral head was removed. The acetabulum was carefully exposed. The inferior capsule was released. The labrum was resected. The acetabulum was sequentially reamed to one over the intended cup size. The cup was impacted into position with excellent press-fit. Typical anatomic landmarks, including the bony contact points as well as the inferior transverse acetabular ligament were used to confirm cup positioning with preoperative templating. Attention was turned to the femur, which was carefully exposed. The hip was reamed and then broached sequentially. Excellent press-fit was obtained with the broach. The hip was trialed. Measurements were utilized, including the lesser trochanter as well as the center of the femoral head and the tip of the trochanter, and excellent assessment of the offset and leg lengths were confirmed. The real component was impacted into position. Trialing confirmed appropriate leg length and offset with soft tissue balancing as well apparent feel of the leg, both at the knee and the heel. Soft tissues were assessed using the the iliotibial band. Reduction of the posterior capsule and external rotators were also used as a secondary assessment. The hip was copiously irrigated with pulsatile lavage antibiotic solution periodically throughout the procedure. The real components were then assembled and reduced. The hip was stable throughout typical maneuvers, including extension, external rotation to 70 degrees, the position of sleep as well as flexion to 90 degrees with internal rotation past 45 degrees. The shake test confirmed stability without impingement. Osteophytes were removed as necessary. The short external rotators and capsule were repaired back to the posterior trochanter through drill holes. The deep fascia was repaired with running number 2 Quill suture, followed by 0 Stratafix suture and 2-0 Stratafix suture in the dermis. Steri-Strips were placed on the skin, followed by a sterile silver occlusive dressing. There were no complications. Meticulous hemostasis was maintained with the AquaMantys device. The patient was brought to the recovery room in stable condition. There were no complications. Implants The Accolade II hip stem, 127 degree size 5 , was utilized with excellent press-fit. The 50 mm Trident II acetabular component was impacted with excellent press-fit stability. The +0 , 36 mm Biolox ceramic femoral head was utilized. Estimated Blood Loss 200 Drains No Packing No Pathology none sent Complications No immediate complications Condition stable Disposition PACU
[2021-03-31] MEDS: SODIUM CHLORIDE 0.9% IV 1,000 ML 125 ML IV CONT (12:09)
--- NOTE | 2021-03-31 14:11 | PCWOUND ---
WOCN NOTE Spoke to RN, charting for pressure ulcer was in error. no wound care assessment needed at this time.
--- NOTE | 2021-03-31 14:15 | ADMGEN ---
This patient, Jacklyn Nunes, was admitted to [facility] Surgery-4. Patient/family oriented to hospital policies and general routines including ID bracelet, bed and alarms, visiting hours, pain management, procedures, bathroom and other care routines, personal items, smoking policy, room service/diet, and visiting hours. Information on how to activate the Rapid Response Team has been discussed. Patient/Family are encouraged to report perceived risks to care and to ask questions if they do not understand what they are told or what they should do.
--- NOTE | 2021-03-31 20:00 | WPDCN ---
Assessment and Plan Assessment and plan (1) Arthritis of right hip: Code(s): M16.11 - Unilateral primary osteoarthritis, right hip Status: Acute Assessment and Plan: Postoperative day 0 status post right total hip arthroplasty. Wound care, pain control, and DVT prophylaxis will be deferred to the primary service. (2) Chronic kidney disease, stage 3: Code(s): N18.30 - Chronic kidney disease, stage 3 unspecified Status: Acute Assessment and Plan: Check renal function in a.m.. Monitor I/O. (3) Hypertension: Code(s): I10 - Essential (primary) hypertension Status: Acute Assessment and Plan: Blood pressures were reviewed and they are stable postoperatively. Antihypertensives will be reviewed and resumed as appropriate. Monitor blood pressures daily. (4) Gastroesophageal reflux disease: Code(s): K21.9 - Gastro-esophageal reflux disease without esophagitis Status: Inactive Assessment and Plan: No acute issues. Continue pantoprazole. (5) Hypothyroidism: Code(s): E03.9 - Hypothyroidism, unspecified Status: Chronic Assessment and Plan: Continue levothyroxine and check TSH. Additional Plan Thank you for allowing us to participate in this patient's care. Please do not hesitate to contact us with any questions. Supervising physician for this medical consultation is Dr. Sean Purvis. HPI Data of Consult Date/Time: 03/31/21 20:00 Requesting Physician: Jay Lloyd MD Reason for consultation: Postoperative medical management Primary Care Provider: Chidi Pagan MD Consult Narrative Narrative: This is a 71-year-old female with osteoarthritis, hypertension, hypothyroidism, and gastroesophageal reflux disease whom the hospitalist service has been consulted for postoperative medical management. She endorses longstanding pain in her right hip and it has gotten to the point where she is having pain with standing up, walking and she is even having pain at rest. Conservative outpatient treatment has not provided her with longstanding relief and thus she elected for replacement today. Her surgery was performed under general anesthesia with no immediate complications documented and an estimated blood loss of 200 mL. Postoperatively she has done pretty well. She has been up with physical therapy and ambulated to the bathroom without much issue. Her pain however has been a bit of a problem and she describes a severe aching discomfort at the operative site which he rates 9/10. She denies paresthesias, skin color, temperature changes distal to the surgical site. She also denies postoperative fever, chills, sweats, nausea, vomiting, chest pain, and shortness breast. Review of Systems Review of Systems: Twelve systems were reviewed. She believes that her hypertension and hypothyroidism are well controlled on home medication. No significant issues with GERD recently. No history of venous thromboembolism. No recent cold or flu symptoms. Except as documented all other systems were reviewed and are negative. [facility] Past Medical History Medical History (Updated 03/31/21 @ 18:53 by Aide Sahu PA-C) Actinic keratosis Arthritis Benign hypertensive kidney disease Chronic kidney disease, stage 3 Gastroesophageal reflux disease History of basal cell carcinoma (BCC) of skin Hypertension Hypothyroidism Osteoarthritis of left knee Pure hypercholesterolemia Surgical History Surgical History (Updated 03/31/21 @ 18:51 by Aide Sahu PA-C) History of cataract extraction (2010) History of cholecystectomy (08/1991) History of total left hip arthroplasty (03/05/14) History of total right hip arthroplasty (03/31/21) Family History Family History Grandparent Congestive
[2021-03-31] MEDS: FAMOTIDINE 20 MG TABLET PO (22:04)
[2021-03-31] MEDS: KETOROLAC 15 MG/ML VIAL (*BKC) IV PUSH (22:09)
[2021-04-01 05:41] LABS: Basophils Percent Auto 0.1 % (0.2-1.2); Hematocrit 33.4 % (37.0-47.0); Hemoglobin 11.5 g/dL (12.0-15.0); Immature Granulocyte Absolute 0.04 K/mm3 (0.00-0.031); Immature Granulocyte Percent A 0.4 % (0-0.5); Lymphocytes Absolute Auto 1.09 K/mm3 (0.9-3.2); Lymphocytes Percent Auto 11.1 % (18.3-44.2); Mean Corpuscular HGB Conc 34.4 g/dl (32-36); Mean Corpuscular Hemoglobin 32.3 pg (26-34); Mean Corpuscular Volume 93.8 fl (80-100); Mean Platelet Volume 10.1 fl (7.4-10.4); Monocytes Absolute Auto 1.1 K/mm3 (0.1-0.6); Monocytes Percent Auto 11.1 % (2.6-8.5); Neutrophils Absolute Auto 7.6 K/mm3 (1.3-6.7); Neutrophils Percent Auto 77.3 % (45.5-73.1); Platelet Count Result 206 k/mm3 (150-375); Red Blood Count 3.56 M/mm3 (4.2-5.4); Red Cell Distribution Width 13.6 % (11.5-14.5); White Blood Count 9.8 K/mm3 (4.5-10.0)
[2021-04-01 05:47] LABS: Alanine Aminotransferase 12 U/L (4-35); Albumin Level 3.2 g/dL (3.5-5.1); Alkaline Phosphatase 54 U/L (38-126); Anion Gap 8 mmol/L (8-16); Aspartate Amino Transferase 26 U/L (14-36); Bilirubin,Total 0.9 mg/dL (0.2-1.3); Blood Urea Nitrogen 24 mg/dL (7-17); Calcium 8.5 mg/dL (8.4-10.2); Carbon Dioxide 24 mmol/L (22-30); Chloride 101 mmol/L (98-107); Estimated CRCL calculation 34 ml/min; Estimated Glomerular Filt Rate 34; Glucose 118 mg/dL (65-110); Magnesium 1.3 mg/dL (1.6-2.3); Potassium 3.8 mmol/L (3.4-5.0); Sodium 133 mmol/L (137-145)
[2021-04-01 06:00] VITALS: BP 108/49; PULSE 69; RESP 20; TEMP 36.8; O2SAT 97
[2021-04-01] MEDS: ceFAZolin 2 GM/D5W 50 ML 2 GM/50 ML BAG IVPB (06:59)
--- NOTE | 2021-04-01 07:03 | WPDANESPN ---
Anes - Prog Note Post-Op Date/Time: 04/01/21 07:03 Cardiovascular status: normal Respiratory status: normal Airway patency: baseline Mental status: baseline Post-Op hydration status: normal Vital Signs: Last Vital Signs Temp 98.2 F 04/01/21 06:00 Pulse 69 04/01/21 06:00 Resp 20 04/01/21 06:00 BP 108/49 L 04/01/21 06:00 Pulse Ox 97 04/01/21 06:00 Pain Score (VAS): 4-5. pain med helps I/O: Intake & Output 03/31/21 03/31/21 04/01/21 15:59 23:59 07:59 Intake Total 1350 690 100 Balance 1350 690 100 Laboratory Tests 04/01/21 05:30 04/01/21 05:30 03/31/21 04/01/21 04/01/21 07:01 05:30 05:30 WBC 9.8 RBC 3.56 L Hgb 11.5 L Hct 33.4 L MCV 93.8 MCH 32.3 MCHC 34.4 RDW 13.6 Plt Count 206 MPV 10.1 Immature Gran % (Auto) 0.4 Neut % (Auto) 77.3 H Lymph % (Auto) 11.1 L [place] % (Auto) 11.1 H Eos % (Auto) 0.0 Baso % (Auto) 0.1 L Lymph # (Auto) 1.09 [place] # (Auto) 1.1 H Eos # (Auto) 0.0 Baso # (Auto) 0.0 Abs Immat Gran (auto) 0.04 H Absolute Neuts (auto) 7.6 H Absolute Nucleated RBC 0.0 Nucleated RBC % 0.0 Sodium 133 L Potassium 3.8 Chloride 101 Carbon Dioxide 24 Anion Gap 8 BUN 24 H Creatinine 1.50 H Estim Creat Clear Calc 34 Estimated GFR 34 L Glucose 118 H Calcium 8.5 Magnesium 1.3 L Total Bilirubin 0.9 Direct Bilirubin 0.0 AST 26 ALT 12 Alkaline Phosphatase 54 Total Protein 6.0 L Albumin 3.2 L TSH (Reflex) Blood Type A Positive Antibody Screen Negative 04/01/21 05:30 WBC RBC Hgb Hct MCV MCH MCHC RDW Plt Count MPV Immature Gran % (Auto) Neut % (Auto) Lymph % (Auto) [place] % (Auto) Eos % (Auto) Baso % (Auto) Lymph # (Auto) [place] # (Auto) Eos # (Auto) Baso # (Auto) Abs Immat Gran (auto) Absolute Neuts (auto) Absolute Nucleated RBC Nucleated RBC % Sodium Potassium Chloride Carbon Dioxide Anion Gap BUN Creatinine Estim Creat Clear Calc Estimated GFR Glucose Calcium Magnesium Total Bilirubin Direct Bilirubin AST ALT Alkaline Phosphatase Total Protein Albumin TSH (Reflex) Pending Blood Type Antibody Screen Post-procedural complaints: none Patient Feedback: Patient satisfied with anesthetic care.
[2021-04-01] MEDS: LEVOTHYROXINE SODIUM 88 MCG TABLET PO (07:14)
[2021-04-01 08:23] LABS: Thyroid Stimulating Hormone Reflex 0.551 uIU/mL (0.465-4.68)
[2021-04-01] MEDS: FAMOTIDINE 20 MG TABLET PO (08:39)
[2021-04-01] MEDS: hydroCHLOROthiazide 25 MG TABLET PO (08:41)
[2021-04-01] MEDS: ASPIRIN 81 MG ENTERIC TABLET PO (08:41)
[2021-04-01] MEDS: SENNA/DOCUSATE SODIUM TABLET 2 TAB PO (08:42)
[2021-04-01] MEDS: PANTOPRAZOLE 40 MG TABLET PO (08:43)
[2021-04-01] MEDS: polyethylene glycoL 3350 17 GM POWD.PACK PO (08:44)
[2021-04-01] MEDS: lisinopriL 20 MG TABLET PO (08:45)
[2021-04-01 08:52] VITALS: BP 128/52; PULSE 63; RESP 18; TEMP 36.7; O2SAT 100
[2021-04-01 08:57] VITALS: PULSE 64
[2021-04-01] MEDS: atenoloL 50 MG TABLET 100 MG PO (08:57)
--- NOTE | 2021-04-01 08:58 | PM.DS ---
DS: Admitting Diagnosis Discharge Date 04/01/21 Admitting Diagnosis OA Right hip DS: Discharge Diagnosis Discharge Diagnosis (1) Status post total hip replacement, right: Code(s): Z96.641 - Presence of right artificial hip joint Status: Acute Assessment and Plan: Postop day 1: Total hip arthroplasty Right. Patient tolerated procedure well. No complications. Pain manageable with pain medication. No numbness or tingling. We had a lengthy discussion regarding postoperative wound care, limitations, expectations, and exercises. Patient shows good understanding. Patient has had initial physical therapy and is tolerating it well. DVT prophylaxis: 81 mg baby aspirin b.i.d. for 14 days. Short frequent walks. Pain medication: Percocet. Patient has followup appointment with Dr. Lloyd in 3 weeks DS: Summary Hospital Course Reason for hospitalization: Total hip arthroplasty Hospital Course: Patient tolerated procedure well. Has had initial PT/OT and made good progress. Status at Discharge Functional status at discharge: uses cane/walker Overall status at discharge: patient is progressing back to baseline Time Spent with Patient Time attestation: Total time spent providing and/or coordinating discharge services: Exam Narrative: Overweight 71 y/o female. Resting comfortably in bed. Wearing compression socks bilaterally. Dressing dry and intact with no drainage. Moderate swelling. No ecchymosis. No erythema. No hematoma. Range of motion limited due to pain. Calf nontender. Thigh nontender. Neurologic status intact. No varicosities. Distal pulses palpable. DS: Data Data Completed and Pending Labs on day of discharge: Labs from last 24 hours 04/01/21 04/01/21 04/01/21 05:30 05:30 05:30 WBC 9.8 RBC 3.56 L Hgb 11.5 L Hct 33.4 L MCV 93.8 MCH 32.3 MCHC 34.4 RDW 13.6 Plt Count 206 MPV 10.1 Immature Gran % (Auto) 0.4 Neut % (Auto) 77.3 H Lymph % (Auto) 11.1 L [place] % (Auto) 11.1 H Eos % (Auto) 0.0 Baso % (Auto) 0.1 L Lymph # (Auto) 1.09 [place] # (Auto) 1.1 H Eos # (Auto) 0.0 Baso # (Auto) 0.0 Abs Immat Gran (auto) 0.04 H Absolute Neuts (auto) 7.6 H Absolute Nucleated RBC 0.0 Nucleated RBC % 0.0 Sodium 133 L Potassium 3.8 Chloride 101 Carbon Dioxide 24 Anion Gap 8 BUN 24 H Creatinine 1.50 H Estim Creat Clear Calc 34 Estimated GFR 34 L Glucose 118 H Calcium 8.5 Magnesium 1.3 L Total Bilirubin 0.9 Direct Bilirubin 0.0 AST 26 ALT 12 Alkaline Phosphatase 54 Total Protein 6.0 L Albumin 3.2 L TSH (Reflex) 0.551 Antibody Screen 03/31/21 07:01 WBC RBC Hgb Hct MCV MCH MCHC RDW Plt Count MPV Immature Gran % (Auto) Neut % (Auto) Lymph % (Auto) [place] % (Auto) Eos % (Auto) Baso % (Auto) Lymph # (Auto) [place] # (Auto) Eos # (Auto) Baso # (Auto) Abs Immat Gran (auto) Absolute Neuts (auto) Absolute Nucleated RBC Nucleated RBC % Sodium Potassium Chloride Carbon Dioxide Anion Gap BUN Creatinine Estim Creat Clear Calc Estimated GFR Glucose Calcium Magnesium Total Bilirubin Direct Bilirubin AST ALT Alkaline Phosphatase Total Protein Albumin TSH (Reflex) Antibody Screen Negative Discharge Plan Discharge Patient Disposition: Home, Self-Care Discharge Instructions: See green instruction sheet Stand Alone Forms: General Discharge Instructions Follow-up/Referrals: Yoly Mohamud PA [Physician Wealth Management Manager] - Discharge Medications: New aspirin 81 mg tablet,delayed release (DR/EC) 81 mg PO BID 14 Days Qty: 28 RF: 0 oxycodone-acetaminophen 5-325 mg tablet 1 - 2 tablet PO Q4-6H MDD 6 PRN (Reason: pain) Qty: 30 RF: 0 Continued atenolol 100 mg tablet 100 mg PO QAM RF: 0 lisinopril-hydrochlorothiazide 20-25 mg tablet 1 tablet PO QAM RF: 0
--- NOTE | 2021-04-01 09:19 | PM.IMPN ---
Progress Note: A&P Assessment and Plan (1) Arthritis of right hip: Code(s): M16.11 - Unilateral primary osteoarthritis, right hip Status: Acute Assessment and Plan: Patient with DJD of the right hip who has failed conservative management who is now Postop day 1 s/p Rt KERA. She has tolerated the procedure well. Continue therapy. Pain management and DVT prophylaxis per primary team. (2) Chronic kidney disease, stage 3: Code(s): N18.30 - Chronic kidney disease, stage 3 unspecified Status: Acute Assessment and Plan: Baseline Cr 1.3-1.4 range mostly. Cr 1.5 today and still felt to be within her acceptable range. She is eating well. Plan discharge today so further monitoring per primary care nurse practitioner. (3) Hypertension: Code(s): I10 - Essential (primary) hypertension Status: Acute Assessment and Plan: Patient's blood pressure was reviewed on 04/01 Blood pressure remains well controlled. he does not have a hx of excessively high BP. Will continue Atenolol but hold Spironolactone and Lisinopril/HCTZ. Instructed patient to resume her Lisinopril/HCTZ on 04/03 and Spironolactone on 04/05. She does not have have a BP cuff at home. Signs/symptoms of HoTN discussed. (4) Gastroesophageal reflux disease: Code(s): K21.9 - Gastro-esophageal reflux disease without esophagitis Status: Inactive Assessment and Plan: No acute issues. Continue pantoprazole. Stop pepcid (5) Hypothyroidism: Code(s): E03.9 - Hypothyroidism, unspecified Status: Chronic Assessment and Plan: TSH normal. Continue levothyroxine (6) Hypomagnesemia: Code(s): E83.42 - Hypomagnesemia Status: Acute Assessment and Plan: Mag 1.3. Probably related to her anti-HTN. Will replace orally. Subjective Date/time seen: 04/01/21 09:19 Interval history: 71yo female with HTN and CKD here for elective right KERA. her pain is well controlled. She is eating well. Toelrating the therapy. No CP or SOB. No n/v Exam Narrative: AF 98.1 128/52 64 18 100% ra Gen - NARD Chest - CTA bilaterally, nml RR CV - RRR S1/S2 Abd - Soft, obese, NT Ext - No pedal edema. right hip dressing clean/dry/intact Psych - Nml mood and affect Skin - Warm and dry Objective Data Vital Signs Vital Signs: Vital Signs - 24 hr 03/31/21 10:00 03/31/21 10:15 03/31/21 10:30 Temperature 97.1 F L Pulse Rate 58 L 53 L 48 L Respiratory Rate 16 16 10 L Blood Pressure 137/53 L 125/50 L 126/51 L Pulse Oximetry 100 100 100 03/31/21 10:45 03/31/21 11:00 03/31/21 11:15 Temperature Pulse Rate 57 L 52 L 56 L Respiratory Rate 13 16 16 Blood Pressure 126/44 L 137/51 L 122/48 L Pulse Oximetry 100 99 99 03/31/21 12:00 03/31/21 12:12 03/31/21 22:00 Temperature 98.8 F 98.8 F 98.2 F Pulse Rate 59 L 53 L 60 Respiratory Rate 16 16 20 Blood Pressure 124/61 125/51 L 108/49 L Pulse Oximetry 99 99 97 04/01/21 06:00 04/01/21 08:52 04/01/21 08:57 Temperature 98.2 F 98.1 F Pulse Rate 69 63 64 Respiratory Rate 20 18 Blood Pressure 108/49 L 128/52 L Pulse Oximetry 97 100 Intake/Output Intake/Output: Intake & Output 03/29/21 03/30/21 03/31/21 04/01/21 23:59 23:59 23:59 23:59 Intake Total 2140 100 Balance 2140 100 Meds/Results Medications: Active Medications Generic Name Dose Route Start Last Admin Trade Name Freq PRN Reason Stop Dose Admin Acetaminophen 650 mg 04/01/21 06:00 Acetaminophen 325 Mg Tablet PO Q6H PRN Mild Pain (1-3) or Fever Aspirin 81 mg 03/31/21 17:00 04/01/21 08:41 Aspirin 81 Mg Enteric Tablet PO 81 mg BID WILTON Administration Atenolol 100 mg 04/01/21 09:00 04/01/21 08:57 Atenolol 50 Mg Tablet PO 100 mg QAM WILTON Administration Cyclobenzaprine HCl 10 mg 03/31/21 11:27 Cyclobenzaprine Hcl 10 Mg Tablet PO Q8H PRN Muscle Spasm Famotidine 20 mg 03/31/21 21:00 04/01/21 08:39 Bennettoti
[2021-04-01] MEDS: MAGNESIUM OXIDE 400 MG TABLET PO (09:56)
== END 2021-04-01 11:34 | disposition home or self-care (01) ==
LOC: ANHSURGERY 06:07 → ANHSUROVER 11:30
PROVIDERS: Physician Assistant; Physician Assistant Surgical; PCP Family Medicine; Visit Provider Orthopaedic Surgery
PROC: (CPT 27130; principal; 2021-03-31 07:30)
DX: M16.11 Unilateral primary osteoarthritis, right hip (principal); I12.9 Hypertensive chronic kidney disease with stage 1 through stage 4 chronic kidney disease, or unspecified chronic kidney disease; N18.30 Chronic kidney disease, stage 3 unspecified; K21.9 Gastro-esophageal reflux disease without esophagitis; E03.9 Hypothyroidism, unspecified; E78.00 Pure hypercholesterolemia, unspecified; Z96.642 Presence of left artificial hip joint
CPT/HCPCS: 27130; 36415; 73502; 80048; 80076; 80307; 82040; 82565; 83036; 83735; 84443; 85025; 86850; 86900; 86901; 87081; 97110; 97116; 97161; 97165; 97530; 97535; A9270; C1776; J0131; J0171; J0690; J1100; J1170; J1885; J2370; J2405; J2704; J2710; J2795; J3010; J7030; J7120

== ENCOUNTER 2023-03-07 08:26 | Outpatient (CLI) | payer MEDICARE, SELFPAY ==
[2023-03-07 09:25] LABS: Hematocrit 39.7 % (37.0-47.0); Hemoglobin 12.9 g/dL (12.0-15.0); Mean Corpuscular HGB Conc 32.5 g/dl (32-36); Mean Corpuscular Hemoglobin 31.9 pg (26-34); Mean Corpuscular Volume 98.3 fl (80-100); Mean Platelet Volume 10.7 fl (7.4-10.4); Platelet Count Result 226 k/mm3 (150-375); Red Blood Count 4.04 M/mm3 (4.2-5.4); Red Cell Distribution Width 12.9 % (11.5-14.5); White Blood Count 7.2 K/mm3 (4.5-10.0)
[2023-03-07 09:39] LABS: Albumin Level 4.4 g/dL (3.5-5.1); Anion Gap 9 mmol/L (8-16); Blood Urea Nitrogen 33 mg/dL (7-17); Calcium 9.4 mg/dL (8.4-10.2); Carbon Dioxide 25 mmol/L (22-30); Chloride 103 mmol/L (98-107); Estimated Glomerular Filt Rate 37; Glucose 101 mg/dL (65-110); Phosphorus 3.9 mg/dL (2.5-4.5); Potassium 4.4 mmol/L (3.4-5.0); Sodium 137 mmol/L (137-145)
[2023-03-07 09:49] LABS: Parathyroid Intact 108.5 pg/mL (7.5-53.5)
[2023-03-07 12:35] LABS: Appearance Urine Clear (Clear); Bacteria Urine None Seen /hpf; Bilirubin Urine Negative (Negative); Blood Urine Negative (Negative); Color Urine Yellow (Yellow); Glucose Urine UA Negative (Negative); Ketones Urine Negative (Negative); Leukocyte Esterase Ur Trace LEU/UL (NEGATIVE); Nitrate Urine Negative (Negative); Non Pathogenic Casts 0-2; Protein Urine Negative (Negative); RBC Urine 0-2 /hpf (0-2); Specific Grav Ur 1.016 (1.001-1.035); Squamous Epithelial Cell Urine None seen /hpf (Few); Urobilinogen Urine 0.2 mg/dL (<2.0); WBC Urine 0-5 /hpf (0-3); pH Urine 5.5 (5.0-9.0)
[2023-03-07 12:38] LABS: Add Urine Microscopic? YES
[2023-03-07 12:40] LABS: Creatinine Urine 91.9 mg/dL
[2023-03-07 12:49] LABS: Total Protein Urine Random < 5 mg/dL; Ur Ttl Prot Creatinine Ratio < 0.05 mg/mg (0-0.20)
== END 2023-03-07 08:27 | disposition home or self-care (01) ==
LOC: ANHLAB 08:28
PROVIDERS: PCP Family Medicine; Visit Provider Internal Medicine Nephrology
DX: I12.9 Hypertensive chronic kidney disease with stage 1 through stage 4 chronic kidney disease, or unspecified chronic kidney disease (principal); N18.32 Chronic kidney disease, stage 3b; Z96.642 Presence of left artificial hip joint
CPT/HCPCS: 36415; 80069; 81001; 82570; 83970; 84156; 85027

== ENCOUNTER 2023-03-14 10:49 | Outpatient (CLI) | payer MEDICARE, SELFPAY ==
--- NOTE | 2023-03-14 11:02 | ECG_ITS ---
Measurements Intervals [place] Rate: 58 P: 32 DE: 203 QRS: -6 QRSD: 105 T: 6 QT: 415 QTc: 411 Interpretive Statements SINUS BRADYCARDIA LOW QRS VOLTAGE IN PRECORDIAL LEADS [QRS DEFLECTION < 1.0 mV IN CHEST LEADS] INFERIOR MYOCARDIAL INFARCTION , PROBABLY OLD [40+ ms Q WAVE AND/OR ST/T ABNORMALITY IN II/aVF] ABNORMAL ECG COMPARED TO ECG 11/13/2020 09:24:44 SMALL R-WAVE IN AVF IS NO LONGER PRESENT Electronically Signed On 03-14-2023 16:54:31 [employer] by Judah Russell M.D.
== END 2023-03-14 10:50 | disposition home or self-care (01) ==
LOC: ANHCARD 10:53
PROVIDERS: PCP Family Medicine; Visit Provider Orthopaedic Surgery
DX: M17.0 Bilateral primary osteoarthritis of knee (principal); Z01.818 Encounter for other preprocedural examination
CPT/HCPCS: 93005

== ENCOUNTER 2023-04-18 11:34 | Outpatient (CLI) | payer MEDICARE, SELFPAY ==
[2023-04-18 12:55] LABS: Basophils Percent Auto 0.5 % (0.2-1.2); Eosinophils Absolute Auto 0.3 K/mm3 (0-0.3); Hematocrit 39.4 % (37.0-47.0); Hemoglobin 12.9 g/dL (12.0-15.0); Immature Granulocyte Absolute 0.02 K/mm3 (0.00-0.031); Immature Granulocyte Percent A 0.2 % (0-0.5); Lymphocytes Absolute Auto 1.58 K/mm3 (0.9-3.2); Mean Corpuscular HGB Conc 32.7 g/dl (32-36); Mean Corpuscular Hemoglobin 32.5 pg (26-34); Mean Corpuscular Volume 99.2 fl (80-100); Mean Platelet Volume 10.5 fl (7.4-10.4); Monocytes Absolute Auto 0.6 K/mm3 (0.1-0.6); Monocytes Percent Auto 6.9 % (2.6-8.5); Neutrophils Absolute Auto 5.9 K/mm3 (1.3-6.7); Neutrophils Percent Auto 70.4 % (45.5-73.1); Platelet Count Result 237 k/mm3 (150-375); Red Blood Count 3.97 M/mm3 (4.2-5.4); Red Cell Distribution Width 13.1 % (11.5-14.5); White Blood Count 8.3 K/mm3 (4.5-10.0)
[2023-04-18 13:06] LABS: Prothrombin Time 13.4 Seconds (11.1-14.7)
[2023-04-18 13:07] LABS: Partial Thromboplastin Time 27.8 SECONDS (22.3-36.8)
[2023-04-18 13:11] LABS: Albumin Level 4.6 g/dL (3.5-5.1)
[2023-04-18 13:15] LABS: Anion Gap 9 mmol/L (8-16); Blood Urea Nitrogen 32 mg/dL (7-17); Calcium 9.7 mg/dL (8.4-10.2); Carbon Dioxide 23 mmol/L (22-30); Chloride 105 mmol/L (98-107); Estimated Glomerular Filt Rate 44; Glucose 101 mg/dL (65-110); Potassium 4.4 mmol/L (3.4-5.0); Sodium 137 mmol/L (137-145)
[2023-04-18 13:17] LABS: Urine Cotinine NEGATIVE
[2023-04-18 14:42] LABS: Hemoglobin A1C 5.4 % (<5.7)
[2023-04-18 16:23] LABS: MRSA (PCR) NOT DETECTED (NOT DETECTE)
== END 2023-04-18 11:35 | disposition home or self-care (01) ==
LOC: ANHSURGERY 11:38
PROVIDERS: Anesthesiology; PCP Family Medicine; Visit Provider Orthopaedic Surgery
DX: Z01.818 Encounter for other preprocedural examination (principal); N18.32 Chronic kidney disease, stage 3b; M17.12 Unilateral primary osteoarthritis, left knee; Z79.899 Other long term (current) drug therapy
CPT/HCPCS: 80048; 80307; 82040; 83036; 85025; 85610; 85730; 87641

== ENCOUNTER 2023-05-17 00:08 | Day surgery (SDC) | payer MEDICARE, SELFPAY ==
--- NOTE | 2023-04-18 11:29 | PC.NURSE ---
PRE-OP INSTRUCTIONS, PLEASE READ CAREFULLY Report to the Outpatient Waiting Room, entrance under the green pavilion located off [facility], at time _1130 AM_ on date _05/17/23_. Planned Procedure Time: _1:30 PM_. PACK A SMALL OVERNIGHT BAG AND LEAVE IN THE CAR ALONG WITH YOUR WALKER Time changes happen often and if your time is changed the preop area will call you the afternoon before. - You and your visitor will be asked to self-screen and do not enter if you have any COVID symptoms. - A mask is optional within the hospital at this time. -VISITING HOURS 8AM-8PM Patients may have clear liquids (water, carbonated beverages, clear teas, apple juice) until 3 hours prior to surgery (1030 AM) with a maximum of 20 ounces. - No food from midnight until time of surgery Take the following medications with a SIP of water the morning of surgery: _ATENOLOL, HYDRALAZINE, LEVOTHYROXINE, & TYLENOL IF NEEDED_ DO NOT STOP ANY OF YOUR OTHER PRESCRIPTION MEDICATIONS PRIOR TO SURGERY ?EXCEPT THE FOLLOWING Medications to discontinue per ___NONE____, Date to take last dose Please no make-up, nail tajik, hairspray, perfume, deodorant, or body powder the day of surgery. No jewelry (including any body piercings) or valuables the day of surgery, leave them at home. Please take a shower or bath the night before, or the morning of, surgery with an antibacterial soap. Wear comfortable, loose fitting clothing. - Jewelry must be removed prior to entering the operating room. Rings and piercings that are not removed may be cut off. - The hospital will not accept responsibility for valuables. - Please leave all valuables, including medications, at home the day of surgery. If you are going home after surgery, a licensed furniture delivery driver must drive you home. - NO public transportation without another adult if you receive anesthesia. - We recommend that an adult stay with you for 24 hours following discharge. - We also recommend that you do not drive, make important decision, drink alcoholic beverages, or take any drugs that were not prescribed by your health care provider for at least 24 hours after your discharge time. Follow any additional instructions given to you from your surgeon. If you or anyone in your household have experienced Covid symptoms in the past week, please notify your surgeon or the nurse liaison at the phone number below for possible testing. Instructions given to _PATIENT & SON_and asked if any additional questions and then verbalized understanding. Patient advised to call surgeon office or pre surgery nurse liaison [phone] if any additional questions.
[2023-04-18 11:55] VITALS: BP 150/58; PULSE 60; RESP 18; TEMP 37.1; O2SAT 98; BMI 34.8
[2023-05-17] VITALS (13 sets, daily range): BP systolic 115–165; BP diastolic 42–93; PULSE 60–73; RESP 12–21; TEMP 36–37.3; O2SAT 96–100
--- NOTE | ~2023-05-17 | XR_ITS ---
EXAMINATION: [id number] DATE: 05/17/2023 16:08 CDT INDICATION: Left knee arthroplasty TECHNIQUE: 2 views left knee FINDINGS: There is a left total knee arthroplasty in expected position. Subcutaneous gas with fluid and air in the joint and overlying skin belinda are consistent with recent surgery. No evidence of pe riprosthetic fracture. IMPRESSION: 1. Recent left total knee arthroplasty. Reviewed, dictated and finalized at location A.
[2023-05-17] MEDS: LACTATED RINGERS 1,000 ML 30 ML IV CONT ×2 (12:00→15:48)
[2023-05-17] MEDS: ACETAMINOPHEN 500 MG TABLET 1000 MG PO ×3 (12:09→23:00)
--- NOTE | 2023-05-17 12:51 | WPDANESEPPF ---
Anes - Initial Pre Proc Eval Procedure: Operation Date: 05/17/23 13:30 Proposed Procedures p Left Total Knee Arthroplasty - Jay Lloyd MD Date/Time: 05/17/23 12:51 Surgeon: Jay Lloyd MD Pre Op Diagnosis: Prim O A Lt Knee Patient Data Age: 73 Gender: F Height: 1.68 m Weight: 97 kg Last Vital Signs Temp 98.3 F 05/17/23 12:13 Pulse 60 05/17/23 12:13 Resp 16 05/17/23 12:13 BP 142/42 H 05/17/23 12:13 Pulse Ox 100 05/17/23 12:13 O2 Del Method Room Air 05/17/23 12:13 Allergies Allergy/AdvReac Type Severity Reaction Status Date / Time hydrocodone Allergy Unknown Swelling Verified 04/18/23 11:53 tramadol Allergy Unknown Swelling Verified 04/18/23 11:53 Home Medications Medication Instructions Recorded Confirmed Type acetaminophen 500 mg tablet 1,000 mg PO BID PRN Pain 03/09/21 05/17/23 History atenolol 100 mg tablet 100 mg PO DAILY #90 tabs 02/09/23 05/17/23 Rx levothyroxine 88 mcg tablet 88 mcg PO QAM #90 tabs 02/09/23 05/17/23 Rx pantoprazole 40 mg tablet,delayed 40 mg PO QAM #90 tabs 02/09/23 05/17/23 Rx release spironolactone 25 mg tablet 25 mg PO DAILY #90 tabs 02/09/23 05/17/23 Rx hydralazine 10 mg tablet 10 mg PO BID #60 tabs 02/17/23 05/17/23 Rx rosuvastatin 10 mg tablet See Rx Instructions .Route 03/27/23 05/17/23 Rx .COMPLEX #90 tabs lisinopril 20 1 tablet PO BID #180 tabs 03/28/23 05/17/23 Rx mg-hydrochlorothiazide 25 mg tablet Laboratory Tests 05/17/23 11:52 Blood Type Pending Antibody Screen Pending Patient hx anesthesia problems: none Family hx anesthesia problems: none Results Review: All pre-operative results and documents have been reviewed as part of the pre-operative evaluation. [facility] Past Medical History Medical History Abnormal urinalysis Arthritis Benign hypertensive kidney disease Gastroesophageal reflux disease History of basal cell carcinoma (BCC) of skin Hypothyroidism Obesity (BMI 30-39.9) Pure hypercholesterolemia Stage 3b chronic kidney disease Surgical History Surgical History History of basal cell carcinoma (BCC) of skin History of cataract extraction (2010) History of cholecystectomy (08/1991) History of total left hip arthroplasty (03/05/14) History of total right hip arthroplasty (03/31/21) Family History Family History Grandparent Congestive heart failure Mother Hypertension Cerebrovascular accident Social History Social History Social History: Surrogate decision maker: kaia Galdamez. Code status: Full code. Smoking status: Former smoker Tobacco type: cigarettes Additional smoking assessment comments: SMOKED BRIEFLY IN HER 20'S, DENIES ALL FORMS OF TOBACCO USE Alcohol intake: current Alcohol use details: RARELY - COMMUNION @ [facility], & MAYBE 1/MONTH Substance use: never Substance use type: does not use Do You Feel Safe in your Home?: Yes Lack of Transportation: No Lack of Food: Never True Current Housing: I Have Housing Concerned About Future Housing: No Difficulty Paying Gas/Electric Bills: No Difficulty Paying for Meds: No Currently Unemployed: No Education: High School Diploma/GED Difficulty w/ Childcare or Family Care: No Living arrangements: alone Additional living arrangements comments: and lives in her own home in [place]. Children live nearby. Occupation/Education: retired Gender identity (if verbalized by the patient): Female Sexual Orientation (if Verbalized by the Patient): Straight or Heterosexual Spiritual care concerns: No Anes - Eval Final PreProcedure Day of Procedure 05/17/23 12:51 Patient weight: normal and obese Heart: regular rate and rhythm
--- NOTE | 2023-05-17 13:15 | WPDHPUPDATE1 ---
History and Physical Update Update Date/Time: 05/17/23 13:15 History and Physical has been reviewed, including an updated exam of the patient. There are NO changes in the patient's condition. Risks, benefits, and alternatives have been discussed and questions answered. Patient agrees to proceed with procedure.
[2023-05-17] MEDS: TRANEXAMIC ACID 1,000MG/ISO100 1,000 MG/100 ML BAG 200 MG IVPB (13:16)
--- NOTE | 2023-05-17 13:41 | WPDANESPNB ---
Anes - Peripheral Nerve Block Date/Time: 05/17/23 13:41 I have discussed with the patient/family/POA the placement of a peripheral nerve block for post-operative pain management, including associated risks, benefits, complications, and side effects. Alternative methods of post-operative analgesia were detailed. Questions were solicited and answers provided to the satisfaction of the patient/family/POA. Time-Out: A pre-procedural Time-Out was completed immediately before starting the procedure and confirmed: Patient Identification, Site, Procedure, Patient Position and the Availability of Requisite Equipment. Clinical Indications: Acute post-operative pain management requested by the operative surgeon. Nerve Block Insertion Note Anes-nerve block: adductor canal left Patient position: supine Skin prep: chlorhexidine Needle: 22 gauge, stimulating, insulated echogenic needle. Needle length: 80 mm Technique: ultrasound Injectate: other (Bupiv 0.5%, 20 mls. ) Observations: tolerated well Complications: none Procedure start time:: 1320 Procedure end time:: 1330
[2023-05-17] MEDS: ceFAZolin 2 GM/D5W 50 ML 2 GM/50 ML BAG IVPB ×2 (13:46→22:00)
[2023-05-17] MEDS: SODIUM CHLORIDE 0.9% INFILTRATE (14:23)
[2023-05-17] MEDS: ROPIVACAINE HCL INFILTRATE (14:23)
[2023-05-17] MEDS: EPINEPHRINE HCL INFILTRATE (14:23)
[2023-05-17] MEDS: GENTAMICIN BONE CEMENT REFOBACIN 1 EACH TOPICAL (14:59)
--- NOTE | 2023-05-17 16:03 | P.OP_ITS ---
Procedure Note - Detailed Date of Procedure 05/17/23 Pre-op Diagnosis Left knee osteoarthritis. Post-op Diagnosis Same Procedure Performed Total knee arthroplasty, left knee. Surgeon Jay Lloyd MD Sand Caster Apprentice Yoly Mohamud PA-C Anesthesia General and Regional (subsartorial block) Findings Extensive degenerative changes. Morbid obesity. Satisfactory bone quality. Anterior tibial subluxation preoperatively. Posterior stabilized component utilized. Preoperative flexion range of motion severely limited. Flexion and extension gaps were equal and not overly tight with the spacer block. However, there was contracture of the quadriceps noted at the conclusion of the procedure which limited flexion to about 110?. Description of Procedure The patient was brought to the operating room. A general anesthetic was administered. The leg was prepped and draped in the usual sterile fashion. The limb was elevated and the tourniquet inflated to 300 mmHg. A longitudinal incision was created along the medial border of the patella and patellar tendon, and a trivector approach to the knee was performed. No medial release was taken. The knee was then flexed. The osteophytes were carefully removed. The intramedullary guide was placed in the femoral canal. The distal femoral resection was then taken with the oscillating saw. The collateral ligaments were carefully protected. The tibia was carefully exposed. The jig was applied, and the proximal tibia was resected according to preoperative plan. The knee was balanced in extension. Appropriate releases were taken where needed. The anterior cruciate ligament and meniscal remnants were removed. The posterior cruciate ligament was excised. The patella was measured. Patellar resection was carried out with the oscillating saw. The lug holes drilled. The femur was sized and rotation assessed using a combination of gap balancing, posterior referencing, and the AP axis. The 4 in 1 cutting block was used to finish the femoral cuts after equal gaps were assured. The box cut for the PS component was taken. The osteophytes were carefully removed from the back of the knee. The knee was copiously irrigated with antibiotic solution periodically throughout the procedure. The meniscal remnants were removed. The spacer block was used to confirm equal flexion and extension gaps. No further releases were needed. The tibia was sized and broached. The bony surfaces were prepared for cementing with pulsatile lavage. The real tibial and femoral and patellar components were cemented into position. Excess cement was carefully removed. Patellar tracking was carefully assessed. No additional releases were required. Copious irrigation then performed. The wound was closed with #1 Vicryl suture, #2, 2-0, and 3-0 barbed suture, followed by Steri-Strips. A sterile bulky dressing was applied. Meticulous hemostasis was maintained throughout the procedure. The bipolar cautery device was used. The pain relieving mixture was injected into the periarticular tissues during the procedure. There were no complications. The patient was extubated and brought to the recovery room in stable condition after the application of sterile dressing with Emiliano bandage. [employer] Triathlon knee system, low profile cemented tibia size 4, cemented posterior stabilized femoral component size 4 ,and an 10 mm posterior stabilized polyethylene insert. 35 mm asymmetric all polyethylene patella component. Estimated Blood Loss 100 Drains No Pathology None sent Complications No immediate complications Condition Stable Disposition PACU [facility] Billing Surgery - Charge Forward: Surgery Billing
[2023-05-17] MEDS: ASPIRIN 81 MG ENTERIC TABLET PO (17:30)
[2023-05-17] MEDS: lisinopriL 20 MG TABLET PO (17:32)
[2023-05-17] MEDS: hydroCHLOROthiazide 25 MG TABLET PO (17:32)
[2023-05-17] MEDS: hydrALAZINE 10 MG TABLET PO (17:32)
[2023-05-17] MEDS: SODIUM CHLORIDE 0.9% IV 1,000 ML 125 ML IV CONT (17:34)
--- NOTE | 2023-05-17 17:39 | ADMGEN ---
This patient, Jacklyn Nunes, was admitted to 2 Medical Room 254-01. Patient/family oriented to hospital policies and general routines including ID bracelet, bed and alarms, visiting hours, pain management, procedures, bathroom and other care routines, personal items, smoking policy, room service/diet, and visiting hours. Information on how to activate the Rapid Response Team has been discussed. Patient/Family are encouraged to report perceived risks to care and to ask questions if they do not understand what they are told or what they should do.
[2023-05-17] MEDS: oxyCODONE HCL (*CRX) 5 MG TAB IR 10 MG PO (20:38)
[2023-05-18 02:43] VITALS: BP 127/49; PULSE 71; RESP 20; TEMP 37; O2SAT 98
[2023-05-18] MEDS: ceFAZolin 2 GM/D5W 50 ML 2 GM/50 ML BAG IVPB ×2 (05:06→14:27)
[2023-05-18] MEDS: ACETAMINOPHEN 500 MG TABLET 1000 MG PO ×2 (05:06→11:27)
[2023-05-18 05:07] LABS: Basophils Percent Auto 0.1 % (0.2-1.2); Hemoglobin 11.4 g/dL (12.0-15.0); Immature Granulocyte Absolute 0.04 K/mm3 (0.00-0.031); Immature Granulocyte Percent A 0.4 % (0-0.5); Lymphocytes Absolute Auto 0.73 K/mm3 (0.9-3.2); Lymphocytes Percent Auto 6.7 % (18.3-44.2); Mean Corpuscular HGB Conc 32.6 g/dl (32-36); Mean Corpuscular Hemoglobin 32.1 pg (26-34); Mean Corpuscular Volume 98.6 fl (80-100); Mean Platelet Volume 10.6 fl (7.4-10.4); Monocytes Absolute Auto 0.9 K/mm3 (0.1-0.6); Monocytes Percent Auto 8.5 % (2.6-8.5); Neutrophils Absolute Auto 9.2 K/mm3 (1.3-6.7); Neutrophils Percent Auto 84.3 % (45.5-73.1); Platelet Count Result 194 k/mm3 (150-375); Red Blood Count 3.55 M/mm3 (4.2-5.4); Red Cell Distribution Width 12.7 % (11.5-14.5); White Blood Count 10.9 K/mm3 (4.5-10.0)
[2023-05-18] MEDS: LEVOTHYROXINE SODIUM 88 MCG TABLET PO (05:07)
[2023-05-18 05:19] LABS: Anion Gap 9 mmol/L (4-12); Blood Urea Nitrogen 22 mg/dL (7-17); Calcium 9.4 mg/dL (8.4-10.2); Carbon Dioxide 20 mmol/L (22-30); Chloride 107 mmol/L (98-107); Estimated CRCL calculation 46 ml/min; Estimated Glomerular Filt Rate 48; Glucose 140 mg/dL (65-110); Potassium 4.6 mmol/L (3.4-5.0); Sodium 136 mmol/L (137-145)
[2023-05-18 06:20] VITALS: BP 130/56; PULSE 75; RESP 18; TEMP 36.9; O2SAT 97
--- NOTE | 2023-05-18 07:53 | WPDANESPN ---
Anes - Prog Note Post-Op Date/Time: 05/18/23 07:53 Cardiovascular status: normal Respiratory status: normal Airway patency: baseline Mental status: baseline Post-Op hydration status: normal Vital Signs: Last Vital Signs Temp 36.9 C 05/18/23 06:20 Pulse 75 05/18/23 06:20 Resp 18 05/18/23 06:20 BP 130/56 L 05/18/23 06:20 Pulse Ox 97 05/18/23 06:20 O2 Del Method Room Air 05/17/23 20:00 O2 Flow Rate 2 05/17/23 16:57 Pain Score (VAS): 03/19 I/O: Intake & Output 05/17/23 05/17/23 05/18/23 15:59 23:59 07:59 Intake Total 550 450 Balance 550 450 Laboratory Tests 05/18/23 04:43 05/18/23 04:42 05/17/23 05/18/23 05/18/23 11:52 04:42 04:43 WBC 10.9 H RBC 3.55 L Hgb 11.4 L Hct 35.0 L MCV 98.6 MCH 32.1 MCHC 32.6 RDW 12.7 Plt Count 194 MPV 10.6 H Immature Gran % (Auto) 0.4 Neut % (Auto) 84.3 H Lymph % (Auto) 6.7 L [place] % (Auto) 8.5 Eos % (Auto) 0.0 Baso % (Auto) 0.1 L Lymph # (Auto) 0.73 L [place] # (Auto) 0.9 H Eos # (Auto) 0.0 Baso # (Auto) 0.0 Abs Immat Gran (auto) 0.04 H Absolute Neuts (auto) 9.2 H Absolute Nucleated RBC 0.000 Nucleated RBC % 0.0 Sodium 136 L Potassium 4.6 Chloride 107 Carbon Dioxide 20 L Anion Gap 9 BUN 22 H D Creatinine 1.10 H Estim Creat Clear Calc 46 Estimated GFR 48 L Glucose 140 H Calcium 9.4 Blood Type A Positive Antibody Screen Negative Post-procedural complaints: none Patient Feedback: Patient satisfied with anesthetic care.
[2023-05-18 08:50] VITALS: BP 137/84; PULSE 70; O2SAT 96
[2023-05-18 08:51] VITALS: PULSE 72
[2023-05-18] MEDS: atenoloL 50 MG TABLET 100 MG PO (08:51)
[2023-05-18] MEDS: lisinopriL 20 MG TABLET PO (08:51)
[2023-05-18] MEDS: PANTOPRAZOLE 40 MG TABLET PO (08:51)
[2023-05-18] MEDS: predniSONE 5 MG TABLET PO (08:51)
[2023-05-18] MEDS: ASPIRIN 81 MG ENTERIC TABLET PO (08:52)
[2023-05-18] MEDS: ROSUVASTATIN 10 MG TABLET PO (08:52)
[2023-05-18] MEDS: SPIRONOLACTONE 25 MG TABLET PO (08:52)
[2023-05-18] MEDS: oxyCODONE HCL (*CRX) 5 MG TAB IR 10 MG PO ×2 (08:52→14:26)
[2023-05-18] MEDS: SENNA/DOCUSATE SODIUM TABLET 2 TAB PO (08:52)
[2023-05-18] MEDS: hydroCHLOROthiazide 25 MG TABLET PO (08:52)
[2023-05-18] MEDS: hydrALAZINE 10 MG TABLET PO (08:52)
--- NOTE | 2023-05-18 09:00 | PM.DS ---
DS: Admitting Diagnosis Discharge Date 05/18/23 Admitting Diagnosis OA knee Left DS: Discharge Diagnosis Discharge Diagnosis (1) Status post total left knee replacement: Code(s): Z96.652 - Presence of left artificial knee joint Status: Acute Assessment and Plan: Postop day 1: Left total Knee arthroplasty. Patient tolerated procedure well. No complications. Pain manageable with pain medication. No numbness or tingling. We had a lengthy discussion regarding postoperative wound care, limitations, expectations, and exercises. Patient shows good understanding. She has had initial physical therapy and is tolerating it well. DVT prophylaxis: 81 mg baby aspirin b.i.d. for 14 days. Pain medication: Percocet. She has an allergy to other pain medications. She has had percocet before and did well with it. Patient has followup appointment with Dr. Lloyd in 3 weeks. DS: Summary Hospital Course Reason for hospitalization: Total knee arthroplasty Hospital Course: Patient tolerated procedure well. Has had initial PT/OT. Status at Discharge Functional status at discharge: uses cane/walker Overall status at discharge: patient is progressing back to baseline Time Spent with Patient Time attestation: Total time spent providing and/or coordinating discharge services: Exam Narrative: Elderly 73-year-old overweight female. Resting comfortably in chair. Alert and oriented x3. No acute distress. Wearing compression socks bilaterally. Dressing intact without drainage. Mild swelling. No ecchymosis. No erythema. No hematoma. Range of motion limited due to pain. Fires quad. Calf nontender. Neurologic status intact. No varicosities. Distal pulses palpable. DS: Data Data Completed and Pending Labs on day of discharge: Labs from last 24 hours 05/18/23 05/18/23 05/17/23 04:43 04:42 11:52 WBC 10.9 H RBC 3.55 L Hgb 11.4 L Hct 35.0 L MCV 98.6 MCH 32.1 MCHC 32.6 RDW 12.7 Plt Count 194 MPV 10.6 H Immature Gran % (Auto) 0.4 Neut % (Auto) 84.3 H Lymph % (Auto) 6.7 L [place] % (Auto) 8.5 Eos % (Auto) 0.0 Baso % (Auto) 0.1 L Lymph # (Auto) 0.73 L [place] # (Auto) 0.9 H Eos # (Auto) 0.0 Baso # (Auto) 0.0 Abs Immat Gran (auto) 0.04 H Absolute Neuts (auto) 9.2 H Absolute Nucleated RBC 0.000 Nucleated RBC % 0.0 Sodium 136 L Potassium 4.6 Chloride 107 Carbon Dioxide 20 L Anion Gap 9 BUN 22 H D Creatinine 1.10 H Estim Creat Clear Calc 46 Estimated GFR 48 L Glucose 140 H Calcium 9.4 Blood Type A Positive Antibody Screen Negative Discharge Plan Discharge Patient Disposition: Home, Self-Care Discharge Instructions: See green instruction sheets Stand Alone Forms: General Discharge Instructions Follow-up/Referrals: Yoly Mohamud PA [Physician Director Of Housing And Energy Services] - Discharge Medications: New prednisone 5 mg tablet 5 mg PO DAILY 21 Days Qty: 21 0RF aspirin 81 mg tablet,delayed release (DR/EC) 81 mg PO BID 14 Days Qty: 28 0RF oxycodone-acetaminophen 5-325 mg tablet 1 - 2 tablet PO Q4-6H MDD 6 PRN (Reason: pain) Qty: 30 0RF Continued acetaminophen 500 mg Tablet 1,000 mg PO BID PRN (Reason: Pain) atenolol 100 mg tablet 100 mg PO DAILY Qty: 90 2RF levothyroxine 88 mcg tablet 88 mcg PO QAM Qty: 90 2RF spironolactone 25 mg tablet 25 mg PO DAILY Qty: 90 2RF pantoprazole 40 mg tablet,delayed release (DR/EC) 40 mg PO QAM Qty: 90 2RF hydralazine 10 mg tablet 10 mg PO BID Qty: 60 8RF rosuvastatin 10 mg tablet See Rx Instructions .ROUTE .COMPLEX Qty: 90 1RF Dose Instruction: TAKE 1 TABLET BY MOUTH EVERY DAY Rx Instructions: TAKE 1 TABLET BY MOUTH EVERY DAY lisinopril-hydrochlorothiazide 20-25 mg tablet 1 tablet PO BID Qty: 180 1RF
== END 2023-05-18 15:25 | disposition home or self-care (01) ==
LOC: ANHSURGERY 13:47 → ANH2MED 17:01
PROVIDERS: Physician Assistant Surgical; PCP Family Medicine; Visit Provider Orthopaedic Surgery
PROC: (CPT 27447; principal; 2023-05-17 13:30)
DX: M17.12 Unilateral primary osteoarthritis, left knee (principal); G89.18 Other acute postprocedural pain; I12.9 Hypertensive chronic kidney disease with stage 1 through stage 4 chronic kidney disease, or unspecified chronic kidney disease; N18.32 Chronic kidney disease, stage 3b; E78.00 Pure hypercholesterolemia, unspecified; K21.9 Gastro-esophageal reflux disease without esophagitis; E03.9 Hypothyroidism, unspecified; E66.9 Obesity, unspecified; Z68.34 Body mass index [BMI] 34.0-34.9, adult
CPT/HCPCS: 27447; 64447; 36415; 73560; 80048; 80307; 82040; 83036; 85025; 85610; 85730; 86850; 86900; 86901; 87641; 97110; 97161; 97165; 97530; 97535; A9270; C1713; C1776; J0171; J0690; J1100; J2405; J2704; J2795; J3010; J7030; J7120; J7512

== ENCOUNTER 2023-07-05 08:54 | Outpatient (CLI) | payer MEDICARE, SELFPAY ==
--- NOTE | ~2023-07-05 | XR_ITS ---
Left Knee Technique: AP, lateral, and sunrise views were obtained. Clinical History: Postoperative follow-up Findings: No fracture or dislocation is seen. Left hip arthroplasty in place, without evidence of lucina dware complication. Soft tissues are unremarkable. No joint effusion is seen. Impression: No acute abnormality. Left hip arthroplasty in place. Reviewed, dictated and finalized at location . Impression: No acute abnormality. Left hip arthroplasty in place.
== END 2023-07-05 08:55 | disposition home or self-care (01) ==
PROVIDERS: PCP Family Medicine; Visit Provider Orthopaedic Surgery
DX: Z96.652 Presence of left artificial knee joint (principal); Z96.642 Presence of left artificial hip joint
CPT/HCPCS: 73562

== ENCOUNTER 2023-07-29 08:50 | Outpatient (CLI) | payer MEDICARE, SELFPAY ==
[2023-07-29 09:15] LABS: Hematocrit 36.7 % (37.0-47.0); Hemoglobin 11.8 g/dL (12.0-15.0); Mean Corpuscular HGB Conc 32.2 g/dl (32-36); Mean Corpuscular Hemoglobin 32.1 pg (26-34); Mean Corpuscular Volume 99.7 fl (80-100); Mean Platelet Volume 10.3 fl (7.4-10.4); Platelet Count Result 220 k/mm3 (150-375); Red Blood Count 3.68 M/mm3 (4.2-5.4); Red Cell Distribution Width 13.2 % (11.5-14.5); White Blood Count 6.4 K/mm3 (4.5-10.0)
[2023-07-29 09:24] LABS: Cholesterol 125 mg/dL (0-200); HDL Direct 51 mg/dL; Triglycerides 98 mg/dL (<150)
[2023-07-29 09:33] LABS: Total Protein Urine Random 7 mg/dL; Ur Ttl Prot Creatinine Ratio 0.04 mg/mg (0-0.20)
[2023-07-29 09:35] LABS: LDL Cholesterol Direct 61 mg/dL
[2023-07-29 09:36] LABS: Parathyroid Intact 101.3 pg/mL (7.5-53.5)
[2023-07-29 10:28] LABS: Albumin Level 4.3 g/dL (3.5-5.1); Anion Gap 9 mmol/L (4-12); Blood Urea Nitrogen 29 mg/dL (7-17); Calcium 9.3 mg/dL (8.4-10.2); Carbon Dioxide 23 mmol/L (22-30); Chloride 107 mmol/L (98-107); Estimated Glomerular Filt Rate 40; Glucose 107 mg/dL (65-110); Phosphorus 3.7 mg/dL (2.5-4.5); Potassium 4.4 mmol/L (3.4-5.0); Sodium 139 mmol/L (137-145)
== END 2023-07-29 08:51 | disposition home or self-care (01) ==
LOC: ANHLAB 08:54
PROVIDERS: Internal Medicine Nephrology; PCP Family Medicine; Visit Provider Family Medicine
DX: I12.9 Hypertensive chronic kidney disease with stage 1 through stage 4 chronic kidney disease, or unspecified chronic kidney disease (principal); N18.32 Chronic kidney disease, stage 3b; Z96.642 Presence of left artificial hip joint; E78.00 Pure hypercholesterolemia, unspecified
CPT/HCPCS: 36415; 80061; 80069; 82570; 83970; 84156; 85027

== ENCOUNTER 2023-09-09 12:12 | Outpatient (CLI) | payer MEDICARE, SELFPAY ==
[2023-09-09 12:55] LABS: Prothrombin Time 13.9 Seconds (11.1-14.7)
[2023-09-09 12:56] LABS: Partial Thromboplastin Time 26.5 Seconds (22.3-36.8)
[2023-09-09 13:51] LABS: MRSA (PCR) NOT DETECTED (NOT DETECTE)
[2023-09-09 14:19] LABS: Urine Cotinine NEGATIVE
[2023-09-09 14:47] LABS: Hemoglobin A1C 5.5 % (<5.7)
== END 2023-09-09 12:13 | disposition home or self-care (01) ==
LOC: ANHSURGERY 12:17
PROVIDERS: Anesthesiology; PCP Family Medicine; Visit Provider Orthopaedic Surgery
DX: Z01.818 Encounter for other preprocedural examination (principal); M17.11 Unilateral primary osteoarthritis, right knee; N18.32 Chronic kidney disease, stage 3b
CPT/HCPCS: 36415; 80307; 83036; 85610; 85730; 86850; 86900; 86901; 87641

== ENCOUNTER 2023-09-13 01:09 | Day surgery (SDC) | payer MEDICARE, SELFPAY ==
--- NOTE | 2023-09-08 13:34 | PC.NURSE ---
Report to the Outpatient Waiting Room, entrance under the green pavilion located off [facility], at time _6:00 AM on date _09/13/23 . Planned Procedure Time: _7:30 AM . Time changes happen often and if your time is changed the preop area will call you the afternoon before. - You and your visitor will be asked to self-screen and do not enter if you have any COVID symptoms. - A mask is optional within the hospital at this time. Patients may have clear liquids (water, carbonated beverages, clear teas, apple juice) until 3 hours prior to surgery( 4:30 AM) with a maximum of 20 ounces. - No food from midnight until time of surgery - Infants may have breast milk until 4 hours before surgery, infant formula 6 hours prior to surgery. - Children will be allowed to drink immediately following surgery. If applicable, please bring a bottle or sippy cup to assist with drinking. Juice, water, soda, and popsicles are readily available. For infants on formula, please bring formula the day of surgery. Pacifiers are allowed. Take the following medications with a SIP of water the morning of surgery: ____ATENOLOL,HYDRALAZINE,LEVOTHYROXINE, OXYCODONE IF NEEDED FOR PAIN_OR TYLENOL IF NEEDED FOR PAIN DO NOT STOP ANY OF YOUR OTHER PRESCRIPTION MEDICATIONS PRIOR TO SURGERY ?EXCEPT THE FOLLOWING Medications to discontinue per physician HOLD ALL VITAMINS 3 DAYS PRE OP PER ANESTHESIA LAST DOSE 09/09/23 Please no make-up, nail yi, hairspray, perfume, deodorant, or body powder the day of surgery. No jewelry (including any body piercings) or valuables the day of surgery, leave them at home. Please take a shower or bath the night before, or the morning of, surgery with an antibacterial soap. Wear comfortable, loose fitting clothing. Children are encouraged to wear pajamas. - Jewelry must be removed prior to entering the operating room. Rings and piercings that are not removed may be cut off. - The hospital will not accept responsibility for valuables. - Please leave all valuables, including medications, at home the day of surgery. If you are going home after surgery, a licensed driver/merchandiser must drive you home. - NO public transportation without another adult if you receive anesthesia. - We recommend that an adult stay with you for 24 hours following discharge. - We also recommend that you do not drive, make important decision, drink alcoholic beverages, or take any drugs that were not prescribed by your health care provider for at least 24 hours after your discharge time. Follow any additional instructions given to you from your surgeon. If you or anyone in your household have experienced Covid symptoms in the past week, please notify your surgeon or the nurse liaison at the phone number below for possible testing. Telephone instructions given to __PATIENT and asked if any additional questions and then verbalized understanding. Patient advised to call surgeon office or pre surgery nurse liaison [phone] if any additional questions.
[2023-09-08 13:45] VITALS: BMI 33.5
[2023-09-13] VITALS (13 sets, daily range): BP systolic 122–168; BP diastolic 57–80; PULSE 54–84; RESP 12–18; TEMP 36.1–36.5; O2SAT 88–100
--- NOTE | ~2023-09-13 | XR_ITS ---
[id number] Ordering provider: Jay Lloyd MD History: . POST-OP, RIGHT TKA . Comparison: None. FINDINGS: BONES: No acute fracture or dislocation. JOINT SPACES: Total knee arthroplasty. SOFT TISSUES: Postoperative changes. IMPRESSION: No acute osseous abnormality right knee. Total knee arthroplasty. Reviewed, dictated and finalized at location A.
[2023-09-13] MEDS: ACETAMINOPHEN 500 MG TABLET 1000 MG PO (06:31)
[2023-09-13] MEDS: LACTATED RINGERS 1,000 ML 30 ML IV CONT ×2 (06:49→09:51)
--- NOTE | 2023-09-13 07:18 | WPDHPUPDATE1 ---
History and Physical Update Update Date/Time: 09/13/23 07:18 History and Physical has been reviewed, including an updated exam of the patient. There are NO changes in the patient's condition. Risks, benefits, and alternatives have been discussed and questions answered. Patient agrees to proceed with procedure.
[2023-09-13] MEDS: TRANEXAMIC ACID 1,000MG/ISO100 1,000 MG/100 ML BAG 200 MG IVPB (07:19)
--- NOTE | 2023-09-13 07:19 | WPDANESEPP ---
Anes - Eval Pre Procedure Procedure: Operation Date: 09/13/23 07:30 Proposed Procedures p Right Total Knee Arthroplasty - Jay Lloyd MD Date/Time: 09/13/23 07:19 Pre Op Diagnosis: primary oa right knee Patient Data Age: 73 Gender: F Height: 1.7 m Weight: 98 kg Last Vital Signs Temp 36.2 C L 09/13/23 06:50 Pulse 58 L 09/13/23 06:50 Resp 16 09/13/23 06:50 BP 151/59 H 09/13/23 07:05 Pulse Ox 98 09/13/23 06:50 O2 Del Method Room Air 09/13/23 06:50 Allergies Allergy/AdvReac Type Severity Reaction Status Date / Time hydrocodone Allergy Unknown Swelling Verified 10/05/23 13:13 tramadol Allergy Unknown Swelling Verified 10/05/23 13:13 Home Medications Medication Instructions Recorded Confirmed Type acetaminophen 500 mg tablet 1,000 mg PO BID PRN Pain 03/09/21 10/05/23 History atenolol 100 mg tablet 100 mg PO DAILY #90 tabs 02/09/23 10/05/23 Rx levothyroxine 88 mcg tablet 88 mcg PO QAM #90 tabs 02/09/23 10/05/23 Rx pantoprazole 40 mg tablet,delayed 40 mg PO QAM #90 tabs 02/09/23 10/05/23 Rx release spironolactone 25 mg tablet 25 mg PO DAILY #90 tabs 02/09/23 10/05/23 Rx rosuvastatin 10 mg tablet See Rx Instructions .Route 03/27/23 10/05/23 Rx .COMPLEX #90 tabs hydralazine 10 mg tablet 10 mg PO DAILY #180 tabs 07/25/23 10/05/23 Rx lisinopril 20 1 tablet PO DAILY #90 tabs 07/25/23 10/05/23 Rx mg-hydrochlorothiazide 25 mg tablet oxycodone-acetaminophen 5 mg-325 1 - 2 tablet PO Q4-6H PRN pain #30 10/05/23 10/05/23 Rx mg tablet (Percocet) tabs Patient hx anesthesia problems: none Family hx anesthesia problems: none Results Review: All pre-operative results and documents have been reviewed as part of the pre-operative evaluation. [facility] Past Medical History Medical History Abnormal urinalysis Arthritis Benign hypertensive kidney disease Gastroesophageal reflux disease History of basal cell carcinoma (BCC) of skin Hypothyroidism Obesity (BMI 30-39.9) Pure hypercholesterolemia Stage 3b chronic kidney disease Surgical History Surgical History History of basal cell carcinoma (BCC) of skin History of cataract extraction (2010) History of cholecystectomy (08/1991) History of total left hip arthroplasty (03/05/14) History of total right hip arthroplasty (03/31/21) Status post total left knee replacement (~05/17/23) Family History Family History Grandparent Congestive heart failure Mother Hypertension Cerebrovascular accident Social History Social History Social History: Surrogate decision maker: kaia Galdamez. Code status: Full code. Smoking packs per day: 0.5 Smoking cigarettes per day: 10.0 Years smoked: 2 Smoking pack-years: 1.00 Smoking status: Never smoker Tobacco type: cigarettes Second hand tobacco smoke exposure: Yes Smoking end date: 02/08/72 Additional smoking assessment comments: SMOKED BRIEFLY IN HER 20'S, DENIES ALL FORMS OF TOBACCO USE Alcohol intake: never Alcohol use details: ONE DRINK PER MONTH Substance use: never Substance use type: does not use Do You Feel Safe in your Home?: Yes Lack of Transportation: No Lack of Food: Never True Current Housing: I Have Housing Concerned About Future Housing: No Difficulty Paying Gas/Electric Bills: No Difficulty Paying for Meds: No Currently Unemployed: No Education: Decline to Answer Difficulty w/ Childcare or Family Care: No Living arrangements: alone Additional living arrangements comments: and lives in her own home in [place]. Children live nearby. 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 Gender identity (if verbalized by the pat
--- NOTE | 2023-09-13 07:29 | SUR.PREOP ---
0624- SPOKE WITH PT ABOUT DNR STATUS. PT STATED SHE HAS DNR PAPERWORK AT HOME, BUT DID BRING IT TODAY TO SURGERY. UPDATED DR. MORRIS AND HE STATED HE WAS NOT GOING TO FILL OUT FORM. DR. PALACIO TOOK PT CARE OVER AND SPOKE WITH PT ABOUT DNR STATUS. PT STATED THAT TODAY IF SOMETHING HAPPENS DURING SURGERY SHE WILL BE FULL CODE. DR. PALACIO FILLED OUT FORM ON CHART. OR STAFF UPDATED.
--- NOTE | 2023-09-13 07:30 | WPDANESEPPF ---
Anes - Initial Pre Proc Eval Procedure: Operation Date: 09/13/23 07:30 Proposed Procedures p Right Total Knee Arthroplasty - Jay Lloyd MD Date/Time: 09/13/23 07:30 Surgeon: Jay Lloyd MD Pre Op Diagnosis: primary oa right knee Patient Data Age: 73 Gender: F Height: 1.7 m Weight: 98 kg Last Vital Signs Temp 36.2 C L 09/13/23 06:50 Pulse 58 L 09/13/23 06:50 Resp 16 09/13/23 06:50 BP 151/59 H 09/13/23 07:05 Pulse Ox 98 09/13/23 06:50 O2 Del Method Room Air 09/13/23 06:50 Allergies Allergy/AdvReac Type Severity Reaction Status Date / Time hydrocodone Allergy Unknown Swelling Verified 09/13/23 06:15 tramadol Allergy Unknown Swelling Verified 09/08/23 13:20 Home Medications Medication Instructions Recorded Confirmed Type acetaminophen 500 mg tablet 1,000 mg PO BID PRN Pain 03/09/21 09/13/23 History atenolol 100 mg tablet 100 mg PO DAILY #90 tabs 02/09/23 09/13/23 Rx levothyroxine 88 mcg tablet 88 mcg PO QAM #90 tabs 02/09/23 09/13/23 Rx pantoprazole 40 mg tablet,delayed 40 mg PO QAM #90 tabs 02/09/23 09/13/23 Rx release spironolactone 25 mg tablet 25 mg PO DAILY #90 tabs 02/09/23 09/13/23 Rx rosuvastatin 10 mg tablet See Rx Instructions .Route 03/27/23 09/13/23 Rx .COMPLEX #90 tabs hydralazine 10 mg tablet 10 mg PO DAILY #180 tabs 07/25/23 09/13/23 Rx lisinopril 20 1 tablet PO DAILY #90 tabs 07/25/23 09/13/23 Rx mg-hydrochlorothiazide 25 mg tablet cholecalciferol (vitamin D3) 50 50 mcg PO DAILY 08/09/23 09/08/23 History mcg (2,000 unit) capsule oxycodone-acetaminophen 5 mg-325 1 - 2 tablet PO Q4-6H PRN pain #30 08/22/23 09/13/23 Rx mg tablet (Percocet) tabs Patient hx anesthesia problems: none Family hx anesthesia problems: none Results Review: All pre-operative results and documents have been reviewed as part of the pre-operative evaluation. [facility] Past Medical History Medical History Abnormal urinalysis Arthritis Benign hypertensive kidney disease Gastroesophageal reflux disease History of basal cell carcinoma (BCC) of skin Hypothyroidism Obesity (BMI 30-39.9) Pure hypercholesterolemia Stage 3b chronic kidney disease Surgical History Surgical History History of basal cell carcinoma (BCC) of skin History of cataract extraction (2010) History of cholecystectomy (08/1991) History of total left hip arthroplasty (03/05/14) History of total right hip arthroplasty (03/31/21) Status post total left knee replacement (~05/17/23) Family History Family History Grandparent Congestive heart failure Mother Hypertension Cerebrovascular accident Social History Social History Social History: Surrogate decision maker: kaia Galdamez. Code status: Full code. Smoking packs per day: 0.5 Smoking cigarettes per day: 10.0 Years smoked: 2 Smoking pack-years: 1.00 Smoking status: Former smoker Tobacco type: cigarettes Second hand tobacco smoke exposure: Yes Smoking end date: 02/08/72 Additional smoking assessment comments: SMOKED BRIEFLY IN HER 20'S, DENIES ALL FORMS OF TOBACCO USE Alcohol intake: current Alcohol use details: ONE DRINK PER MONTH Substance use: never Substance use type: does not use Do You Feel Safe in your Home?: Yes Lack of Transportation: No Lack of Food: Never True Current Housing: I Have Housing Concerned About Future Housing: No Difficulty Paying Gas/Electric Bills: No Difficulty Paying for Meds: No Currently Unemployed: No Education: High School Diploma/GED Difficulty w/ Childcare or Family Care: No Living arrangements: alone Additional living arrangements comments: and lives in her own home in [place]. Children live nearby. Occ
[2023-09-13] MEDS: SODIUM CHLORIDE 0.9% IV 38.7 ML, ROPivacaine HCL 1% 200 MG, KETOROLAC INJ (*BKC) 15 MG,... INFILTRATE (07:36)
[2023-09-13] MEDS: ceFAZolin 2 GM/D5W 50 ML 2 GM/50 ML BAG IVPB ×2 (07:36→17:03)
[2023-09-13] MEDS: GENTAMICIN BONE CEMENT REFOBACIN 1 EACH TOPICAL (08:55)
--- NOTE | 2023-09-13 10:10 | P.OP_ITS ---
Procedure Note - Detailed Date of Procedure 09/13/23 Pre-op Diagnosis primary oa right knee Post-op Diagnosis Same Procedure Performed Total knee arthroplasty, right knee Surgeon Jay Lloyd MD Construction Manager Yoly Mohamud PA-C Anesthesia General and Regional (subsartorial block) Findings Severe tricompartmental arthritis. Mild valgus disease and contracture. Popliteal release and slight posterior lateral capsule release performed. Posterior stabilized knee implant. Good bone quality. Description of Procedure The patient was brought to the operating room. A general anesthetic was administered. The leg was prepped and draped in the usual sterile fashion. The limb was elevated and the tourniquet inflated to 300 mmHg during initial exposure, and cementation. A longitudinal incision was created along the medial border of the patella and patellar tendon, and a trivector approach to the knee was performed. No significant medial release was taken. The knee was then flexed. The osteophytes were carefully removed. The intramedullary guide was placed in the femoral canal. The distal femoral resection was then taken with the oscillating saw. The collateral ligaments were carefully protected. The tibia was carefully exposed. The jig was applied, and the proximal tibia was resected according to preoperative plan. The knee was balanced in extension. Appropriate releases were taken where needed. The anterior cruciate ligament and meniscal remnants were removed. The posterior cruciate ligament was released. The patella was measured. Patellar resection was carried out with the oscillating saw. The lug holes drilled. The femur was sized and rotation assessed using a combination of gap balancing, posterior referencing, and the AP axis. The 4 in 1 cutting block was used to finish the femoral cuts after equal gaps were assured. The osteophytes were carefully removed from the back of the knee. The knee was copiously irrigated with antibiotic solution periodically throughout the procedure. The meniscal remnants were removed. The spacer block was used to confirm equal flexion and extension gaps. Slight lateral release was performed including the popliteus and iliotibial band and posterolateral cap cassandra. The tibia was sized and broached. The bony surfaces were prepared for cementing with pulsatile lavage. The real tibial and femoral and patellar components were cemented into position. Excess cement was carefully removed. Patellar tracking was carefully assessed. No additional releases were required. Dilute sterile Betadine soak performed for three minutes. Copious irrigation then performed. The wound was closed with #1 Vicryl suture, #2, 2-0, and 3-0 barbed suture, followed by Steri-Strips. A sterile bulky dressing was applied. Meticulous hemostasis was maintained throughout the procedure. The bipolar cautery device was used. The pain relieving mixture was injected into the periarticular tissues during the procedure. There were no complications. The patient was extubated and brought to the recovery room in stable condition after the application of sterile dressing with Emiliano bandage. Implants [employer] Triathlon knee system, low profile cemented tibia size 4, cemented cruciate retaining femoral component size 4 , and 10 mm posterior stabilized polyethylene insert. 35mm asymmetric all polyethylene patella component. Estimated Blood Loss 50 Drains No Pathology None sent Complications No immediate complications Condition Stable Disposition PACU [facility] Billing Surgery - Charge Forward: Surgery Billing
[2023-09-13] MEDS: SODIUM CHLORIDE 0.9% IV 1,000 ML 125 ML IV CONT (11:16)
[2023-09-13] MEDS: ACETAMINOPHEN 325 MG TABLET 650 MG PO ×2 (11:16→17:03)
--- NOTE | 2023-09-13 11:25 | PC.NURSE ---
This patient, Jacklyn Nunes, was admitted to 3 [facility] Surg Room 300-01. Patient/family oriented to hospital policies and general routines including ID bracelet, bed and alarms, visiting hours, pain management, procedures, bathroom and other care routines, personal items, smoking policy, room service/diet, and visiting hours. Information on how to activate the Rapid Response Team has been discussed. Patient/Family are encouraged to report perceived risks to care and to ask questions if they do not understand what they are told or what they should do.
[2023-09-13] MEDS: oxyCODONE/ACETAMINOPHEN (*CRX) 10-325 MG TABLET 1 TAB PO (13:06)
--- NOTE | 2023-09-13 15:29 | PCPTNOTE ---
On 09/13/23, the student, [Tessa Urban], provided care and completed [facility] documentation on this patient. I have reviewed the student's documentation and agree with the findings.
[2023-09-13] MEDS: predniSONE 5 MG TABLET PO (17:03)
[2023-09-13] MEDS: oxyCODONE/ACETAMINOPHEN (*CRX) 5-325 MG TABLET 1 TABLET PO (21:28)
[2023-09-13] MEDS: CYCLOBENZAPRINE HCL 5 MG TABLET PO (21:29)
[2023-09-13] MEDS: ASPIRIN 81 MG ENTERIC TABLET PO (21:29)
[2023-09-14] MEDS: ACETAMINOPHEN 325 MG TABLET 650 MG PO (00:12)
[2023-09-14] MEDS: ceFAZolin 2 GM/D5W 50 ML 2 GM/50 ML BAG IVPB ×2 (00:12→08:37)
[2023-09-14 00:29] VITALS: BP 136/70; PULSE 64; RESP 18; TEMP 36.2; O2SAT 99
[2023-09-14 04:29] VITALS: BP 151/59; PULSE 67; RESP 18; TEMP 36.1; O2SAT 98
[2023-09-14] MEDS: LEVOTHYROXINE SODIUM 88 MCG TABLET PO (05:22)
[2023-09-14] MEDS: oxyCODONE/ACETAMINOPHEN (*CRX) 10-325 MG TABLET 1 TAB PO (05:22)
[2023-09-14 06:34] LABS: Basophils Percent Auto 0.1 % (0.2-1.2); Hematocrit 33.1 % (37.0-47.0); Hemoglobin 10.6 g/dL (12.0-15.0); Immature Granulocyte Absolute 0.02 K/mm3 (0.00-0.031); Immature Granulocyte Percent A 0.2 % (0-0.5); Lymphocytes Absolute Auto 0.95 K/mm3 (0.9-3.2); Lymphocytes Percent Auto 8.7 % (18.3-44.2); Mean Corpuscular Hemoglobin 31.8 pg (26-34); Mean Corpuscular Volume 99.4 fl (80-100); Monocytes Absolute Auto 1.6 K/mm3 (0.1-0.6); Monocytes Percent Auto 14.4 % (2.6-8.5); Neutrophils Absolute Auto 8.4 K/mm3 (1.3-6.7); Neutrophils Percent Auto 76.6 % (45.5-73.1); Platelet Count Result 182 k/mm3 (150-375); Red Blood Count 3.33 M/mm3 (4.2-5.4); Red Cell Distribution Width 12.7 % (11.5-14.5)
[2023-09-14 06:52] LABS: Anion Gap 12 mmol/L (4-12); Blood Urea Nitrogen 27 mg/dL (7-17); Calcium 8.4 mg/dL (8.4-10.2); Carbon Dioxide 23 mmol/L (22-30); Chloride 99 mmol/L (98-107); Estimated CRCL calculation 38 ml/min; Estimated Glomerular Filt Rate 37; Glucose 111 mg/dL (65-110); Potassium 4.5 mmol/L (3.4-5.0); Sodium 134 mmol/L (137-145)
[2023-09-14 08:23] VITALS: BP 139/57; PULSE 61; RESP 16; TEMP 36.6; O2SAT 98
[2023-09-14] MEDS: ROSUVASTATIN 10 MG TABLET PO (08:37)
[2023-09-14] MEDS: atenoloL 50 MG TABLET 100 MG PO (08:37)
[2023-09-14] MEDS: PANTOPRAZOLE 40 MG TABLET PO (08:37)
[2023-09-14] MEDS: ASPIRIN 81 MG ENTERIC TABLET PO (08:37)
[2023-09-14] MEDS: SPIRONOLACTONE 25 MG TABLET PO (08:37)
[2023-09-14] MEDS: hydrALAZINE 10 MG TABLET PO (08:37)
[2023-09-14] MEDS: hydroCHLOROthiazide 25 MG TABLET PO (08:37)
[2023-09-14] MEDS: lisinopriL 20 MG TABLET PO (08:38)
[2023-09-14 10:50] VITALS: O2SAT 95
--- NOTE | 2023-09-14 11:14 | PM.DS ---
DS: Admitting Diagnosis Discharge Date 09/14/23 Admitting Diagnosis Knee arthritis. DS: Discharge Diagnosis Discharge Diagnosis (1) Status post total right knee replacement: Code(s): Z96.651 - Presence of right artificial knee joint Status: Acute Plan Postop day 1: Right total Knee arthroplasty. Patient tolerated procedure well. No complications. Pain manageable with pain medication. No numbness or tingling. Her creatinine went up from 1.3 to 1.4, GFR went from 40 to 37. She will call her kidney specialist. Encouraged water intake and told her to avoid ibuprofen. We had a lengthy discussion regarding postoperative wound care, limitations, expectations, and exercises. Patient shows good understanding. She has had initial physical therapy and is tolerating it well. DVT prophylaxis: 81 mg baby aspirin b.i.d. for 14 days. Pain medication: Percocet. She has an allergy to other pain medications. She has had percocet before and did well with it. Patient has followup appointment with Dr. Lloyd in 3 weeks. DS: Summary Hospital Course Reason for hospitalization: Total knee arthroplasty Hospital Course: Patient tolerated procedure well. Has had initial PT/OT. Status at Discharge Functional status at discharge: uses cane/walker Overall status at discharge: patient is progressing back to baseline Time Spent with Patient Time attestation: Total time spent providing and/or coordinating discharge services: Exam Narrative: Elderly 73-year-old overweight female. Resting comfortably in chair. Alert and oriented x3. No acute distress. Wearing compression socks bilaterally. Dressing intact without drainage. Mild swelling. No ecchymosis. No erythema. No hematoma. Range of motion limited due to pain. Fires quad. Calf nontender. Neurologic status intact. No varicosities. Distal pulses palpable. DS: Data Data Completed and Pending Labs on day of discharge: Labs from last 24 hours 09/14/23 05:51 WBC 11.0 H RBC 3.33 L Hgb 10.6 L Hct 33.1 L MCV 99.4 MCH 31.8 MCHC 32.0 RDW 12.7 Plt Count 182 MPV 11.0 H Immature Gran % (Auto) 0.2 Neut % (Auto) 76.6 H Lymph % (Auto) 8.7 L [place] % (Auto) 14.4 H Eos % (Auto) 0.0 Baso % (Auto) 0.1 L Lymph # (Auto) 0.95 [place] # (Auto) 1.6 H Eos # (Auto) 0.0 Baso # (Auto) 0.0 Abs Immat Gran (auto) 0.02 Absolute Neuts (auto) 8.4 H Absolute Nucleated RBC 0.000 Nucleated RBC % 0.0 Sodium 134 L Potassium 4.5 Chloride 99 Carbon Dioxide 23 Anion Gap 12 BUN 27 H Creatinine 1.40 H Estim Creat Clear Calc 38 Estimated GFR 37 L Glucose 111 H Calcium 8.4 Discharge Plan Discharge Patient Disposition: Home, Self-Care Discharge Instructions: See green instruction sheets Stand Alone Forms: General Discharge Instructions Follow-up/Referrals: Yoly Mohamud PA [Physician Bilingual Customer Service Specialist] - Discharge Medications: New aspirin 81 mg tablet,delayed release (DR/EC) 81 mg PO BID 14 Days Qty: 28 0RF prednisone 5 mg tablet 5 mg PO DAILY 21 Days Qty: 21 0RF Continued hydralazine 10 mg tablet 10 mg PO DAILY Qty: 180 0RF lisinopril-hydrochlorothiazide 20-25 mg tablet 1 tablet PO DAILY Qty: 90 1RF oxycodone-acetaminophen [Percocet] 5-325 mg tablet 1 - 2 tablet PO Q4-6H PRN (Reason: pain) Qty: 30 0RF acetaminophen 500 mg Tablet 1,000 mg PO BID PRN (Reason: Pain) atenolol 100 mg tablet 100 mg PO DAILY Qty: 90 2RF levothyroxine 88 mcg tablet 88 mcg PO QAM Qty: 90 2RF spironolactone 25 mg tablet 25 mg PO DAILY Qty: 90 2RF pantoprazole 40 mg tablet,delayed release (DR/EC) 40 mg PO QAM Qty: 90 2RF rosuvastatin 10 mg tablet See Rx Instructions .ROUTE .COMPLEX Qty: 90 1RF Dose Instruction: TAKE 1 TABLET BY MOUTH EVERY DAY Rx Instructions: TAKE 1 TABLET BY MOUTH EVERY DAY
--- NOTE | 2023-09-14 11:37 | WPDANESPN ---
Anes - Prog Note Post-Op Date/Time: 09/14/23 11:37 Cardiovascular status: normal Respiratory status: normal Airway patency: baseline Mental status: baseline Post-Op hydration status: normal Vital Signs: Last Vital Signs Temp 36.6 C 09/14/23 08:23 Pulse 61 09/14/23 08:23 Resp 16 09/14/23 08:23 BP 139/57 L 09/14/23 08:23 Pulse Ox 95 09/14/23 10:50 O2 Del Method Room Air 09/14/23 10:50 O2 Flow Rate 8 09/13/23 10:05 Pain Score (VAS): 0 I/O: Intake & Output 09/13/23 09/14/23 09/14/23 23:59 07:59 15:59 Intake Total 170 50 240 Balance 170 50 240 Laboratory Tests 09/14/23 05:51 09/14/23 05:51 09/14/23 05:51 WBC 11.0 H RBC 3.33 L Hgb 10.6 L Hct 33.1 L MCV 99.4 MCH 31.8 MCHC 32.0 RDW 12.7 Plt Count 182 MPV 11.0 H Immature Gran % (Auto) 0.2 Neut % (Auto) 76.6 H Lymph % (Auto) 8.7 L [place] % (Auto) 14.4 H Eos % (Auto) 0.0 Baso % (Auto) 0.1 L Lymph # (Auto) 0.95 [place] # (Auto) 1.6 H Eos # (Auto) 0.0 Baso # (Auto) 0.0 Abs Immat Gran (auto) 0.02 Absolute Neuts (auto) 8.4 H Absolute Nucleated RBC 0.000 Nucleated RBC % 0.0 Sodium 134 L Potassium 4.5 Chloride 99 Carbon Dioxide 23 Anion Gap 12 BUN 27 H Creatinine 1.40 H Estim Creat Clear Calc 38 Estimated GFR 37 L Glucose 111 H Calcium 8.4 Post-procedural complaints: none Patient Feedback: Patient satisfied with anesthetic care.
== END 2023-09-14 12:15 | disposition home or self-care (01) ==
LOC: ANHSURGERY 10:05 → ANH3MEDSUR 10:46
PROVIDERS: Physician Assistant Surgical; PCP Family Medicine; Visit Provider Orthopaedic Surgery
PROC: (CPT 27447; principal; 2023-09-13 07:30)
DX: M17.11 Unilateral primary osteoarthritis, right knee (principal); I12.9 Hypertensive chronic kidney disease with stage 1 through stage 4 chronic kidney disease, or unspecified chronic kidney disease; N18.32 Chronic kidney disease, stage 3b; E03.9 Hypothyroidism, unspecified; E78.00 Pure hypercholesterolemia, unspecified; K21.9 Gastro-esophageal reflux disease without esophagitis; Z87.891 Personal history of nicotine dependence; E66.9 Obesity, unspecified; Z68.33 Body mass index [BMI] 33.0-33.9, adult
CPT/HCPCS: 27447; 36415; 73560; 80048; 80307; 83036; 85025; 85610; 85730; 86850; 86900; 86901; 87641; 97110; 97161; 97165; 97530; 97535; A9270; C1713; C1776; J0171; J0690; J1100; J1596; J1885; J2405; J2704; J2795; J3010; J7030; J7120; J7512

== ENCOUNTER 2023-11-02 12:42 | Outpatient (CLI) | payer MEDICARE, SELFPAY ==
--- NOTE | ~2023-11-02 | XR_ITS ---
XR knee RT 3V Ordering provider: Jay Lloyd MD History: . Z96.651 - Presence of right artificial knee joint . Comparison: August 22, 2023 FINDINGS: BONES: No acute fracture or dislocation. JOINT SPACES: Total knee arthroplasty. SOFT TISSUES: Normal. IMPRESSION: No acute osseous abnormality right knee. Total knee arthroplasty. Reviewed, dictated and finalized at location A.
== END 2023-11-02 12:43 | disposition home or self-care (01) ==
PROVIDERS: PCP Family Medicine; Visit Provider Orthopaedic Surgery
DX: Z96.651 Presence of right artificial knee joint (principal)
CPT/HCPCS: 73562

== ENCOUNTER 2024-05-29 10:44 | Outpatient (CLI) | payer MEDICARE, SELFPAY ==
--- NOTE | ~2024-05-29 | XR_ITS ---
Right Knee Technique: AP, lateral, and sunrise views were obtained. Clinical History: Arthroplasty Findings: No fracture or dislocation is seen. Right knee arthroplasty in place. No hardware complicat ion is evident. Soft tissues are unremarkable. No joint effusion is seen. Impression: No acute abnormality. Right knee arthroplasty. Reviewed, dictated and finalized at location . Impression: No acute abnormality. Right knee arthroplasty.
--- NOTE | ~2024-05-29 | XR_ITS ---
Left Knee Technique: AP, lateral, and sunrise views were obtained. Clinical History: Arthroplasty Findings: No fracture or dislocation is seen. Left knee arthroplasty in place. No hardware complicati on is evident. Soft tissues are unremarkable. No joint effusion is seen. Impression: No acute abnormality. Left knee arthroplasty. Reviewed, dictated and finalized at location . Impression: No acute abnormality. Left knee arthroplasty.
--- OUTSIDE RECORDS SUMMARY | 2024-05-29 12:22 | XMS_ITS | Clinical Summary ---
Author Organization [facility] Address [address] [place] [id number] Care Team Providers Care Professor Of Business Administration Name Role Phone Unavailable Primary Care Provider Unavailabl e Social History Tobacco Use Types Packs/Day Years Used Date Smoking Tobacco: Never Assessed Comments Unknown Sex and Gender Information Value Date Recorded Sex Assigned at Not on file Legal Sex Female 4:32 PM CDT Gender Identity Not on file Sexual Orientation Not on file Plan of Treatment Health Maintenance Due Date Last Done Comments Hepatitis C 01/16/1966 DTaP, Tdap and Td Vaccines ( 1 - Tdap) 01/16/1967 Pneumococcal Vaccine: 50+ Ye ars (1 of 1 - PCV) 01/16/1998 Zoster Vaccines (1 of 2) 01/16/1998 Dexa Scan (General) 01/16/2013 RSV Immunization or 60+ Years (1 - 1-dose 75+ series) 01/16/2023 COVID-19 Vaccine (2023-2 5 season) 2023 Meningococcal B Vaccine Aged Out No l onger eligible based on patient's age to complete this topic Meningococcal Vaccine Aged Out No marga alex eligible based on patient's age to complete this topic RSV Immunizations Under 20 Months Aged Out No longer eligible based on patient's age to complete this topic
--- OUTSIDE RECORDS SUMMARY | 2024-05-29 12:22 | XMS_ITS | Clinical Summary ---
Author Organization [facility] Address [address], [place] [address] Phone Care Team Providers Care [employer] Edger Name Role Phone Chidi Pagan MD Primary Care Provider [phone] Allergies No known active allergies Medications atenolol (TENORMIN) 100 MG tablet 11/07/2020 Active levothyroxine (SYNTHROID) 88 MCG tablet 11/24/2020 Active lisinopril-hydroCH LOROthiazide (PRINZIDE) 20-25 MG per tablet 11/07/2020 Activ e pantoprazole (PROTONIX) 40 MG EC tablet 11/24/2020 Active spironolactone (ALDACTONE) 25 MG tablet 11/20/2020 Active Active Problems Problem Noted Date Diagnosed Date Nonspecific abnormal results of function study o f kidney 12/04/2020 Family History Medical History Relation Comments Kidney disease Neg Hx Social History Tobacco Use Types Packs/Day Years Used Date Smoking Tobacco: Former Smokeless Tobacco: Never Alcohol Use Standard Drinks/Week Comments Yes 0 (1 standard drink = 0.6 oz pur e alcohol) occasionally Comments Unknown Sex and Gender Information Value Date Recorded Sex Assigned at Not on file Legal Sex Female 9:38 AM MDT Gender Identity Not on file Sexual Orientation Not on file Last Filed Vital Signs Vital Sign Reading Time Taken Comments Blood Pressure 130/70 12/08/2020 11:45 AM CDT Pulse 72 12/08/2020 11:45 AM CDT Temperature 35.9 C (96.6 F) 12/08/2020 11:45 AM CDT Respiratory Rate - - Oxygen Saturation - - Inhaled Oxygen Concentration - - Weight 100 kg (221 lb) 12/08/2020 11:45 AM CDT Height 175.3 cm (5' 9 ) 12/08/2020 11:45 AM CDT Body Mass Index 32.64 12/08/2020 11:45 AM CDT Plan of Treatment Health Maintenance Due Date Last Done Comments Pneumococcal PPSV23/PCV13 65 + Years / Low and Medium Risk (1 of 4 - PCV) 01/16/1998 Influenza Vaccine (Season Ended) 2024 Insurance [employer] MED[employer]ARE Care Teams [employer] [employer] Relationship Specialty Start Date End Date Chidi Pagan MD [address] [place] [id number] PCP - General Internal Medicine 11/20/20
== END 2024-05-29 10:45 | disposition home or self-care (01) ==
PROVIDERS: PCP Family Medicine; Visit Provider Orthopaedic Surgery
DX: Z96.651 Presence of right artificial knee joint (principal); Z96.652 Presence of left artificial knee joint
CPT/HCPCS: 73562

== ENCOUNTER 2024-08-13 14:06 | Outpatient (CLI) | payer MEDICARE, SELFPAY ==
--- OUTSIDE RECORDS SUMMARY | 2024-08-13 14:09 | XMS_ITS | Clinical Summary ---
Author Organization [facility] Address [address], [place] [address] Phone Care Team Providers Care Sanitizer Name Role Phone Chidi Pagan MD Primary Care Provider [phone] Allergies No known active allergies Medications atenolol [...] 11:45 AM CDT Height 175.3 cm (5' 9) 12/08/2020 11:45 AM CDT Body Mass Index 32.64 12/08/2020 11:45 AM CDT Plan of Treatment Health Maintenance Due Date Last Done Comments Pneumococcal PPSV23/PCV13 65 + Years / Low and Medium Risk (1 of 2 - PCV) 01/16/1998 Influenza Vaccine (#1) 2024 Insurance [employer] MED[employer]ARE Care Teams Sanitizer Relationship Specialty Start Date End Date Chidi Pagan MD [address] [place] [id number] PCP - General Internal Medicine 11/20/20
--- OUTSIDE RECORDS SUMMARY | 2024-08-13 14:09 | XMS_ITS | Clinical Summary ---
Author Organization [facility] Address [address] [place] [id number] Care Team Providers Care Documentation Engineer Name Role Phone Unavailable Primary Care Provider [...]
== END 2024-08-13 14:07 | disposition home or self-care (01) ==
LOC: ANHAUDIO 14:07
PROVIDERS: PCP Family Medicine; Visit Provider Family Medicine
DX: H90.3 Sensorineural hearing loss, bilateral (principal); H61.23 Impacted cerumen, bilateral
CPT/HCPCS: 92557; 92567

== ENCOUNTER 2024-10-15 12:30 | Outpatient (RCR) | payer MEDICARE, SELFPAY | END 2024-10-15 23:59 | disposition home or self-care (01) | LOC: ANHAUDIO 12:30 | PROVIDERS: PCP Family Medicine; Visit Provider Family Medicine | DX: Z46.1 Encounter for fitting and adjustment of hearing aid (principal) | CPT/HCPCS: 99199; V5261; V5264 ==